=== PATIENT | male | born 1940 | race Caucasian/White ===

== ENCOUNTER 2019-09-28 16:30 | Emergency (ER) | payer MEDICARE, SELFPAY ==
[2019-09-28 16:36] VITALS: BP 135/88; PULSE 106; RESP 16; TEMP 36.7; O2SAT 93; BMI 23.0
--- NOTE | 2019-09-28 16:46 | XRR_ITS ---
PROCEDURE INFORMATION: Exam: XR Chest, 1 View Exam date and time: 09/28/2019 5:27 PM Age: 79 years old Clinical indication: Injury or trauma; Injury history: Pinned under fallen tree; Initial encounter; Crushing TECHNIQUE: Imaging protocol: XR of the chest Views: 1 view. COMPARISON: No relevant prior studies available. FINDINGS: Lungs: Unremarkable. No consolidation. Pleural space: Unremarkable. No pleural effusion. No pneumothorax. Heart/Mediastinum: Unremarkable. No cardiomegaly. Bones/joints: There is widening of the right acromioclavicular joint compared to the left. This may reflect a acromioclavicular joint separation. No definite rib fractures identified on this exam but probable rib fractures were partially imaged on the humerus exam of the same day. XR/XR chest 1V portable [id number] IMPRESSION: The lungs are clear. No definite fracture on this exam but probable new fractures were partially imaged on the humerus exam of the same day. No pneumothorax.
--- NOTE | 2019-09-28 16:46 | XRR_ITS ---
PROCEDURE INFORMATION: Exam: XR Right Humerus Exam date and time: 09/28/2019 5:27 PM Age: 79 years old Clinical indication: Injury or trauma; Injury history: Pinned under fallen tree; Initial encounter; Blunt trauma (contusions or hematomas; Shoulder and arm, upper and elbow and wrist; Right TECHNIQUE: Imaging protocol: XR Right humerus Views: 2 or more views. COMPARISON: No relevant prior studies available. FINDINGS: Bones/joints: No acute humerus fracture. No dislocation. Chronic appearing enthesopathy of the medial epicondyle is noted. Several rib fractures are noted at the edge of the field of view including the lateral aspect of the probable right 9th and 10th ribs. No pneumothorax is identified. Soft tissues: There is abundant soft tissue edema specially surrounding the lower arm. XR/[place] [id number] IMPRESSION: 1. Right lateral rib fractures. 2. No acute fracture of the humerus. There is soft tissue edema.
--- NOTE | 2019-09-28 16:46 | XRR_ITS ---
PROCEDURE INFORMATION: Exam: XR Lumbosacral Spine, 2 or 3 Views Exam date and time: 09/28/2019 5:57 PM Age: 79 years old Clinical indication: Injury or trauma; Injury history: Pinned under fallen tree; Initial encounter; Blunt trauma (contusions or hematomas); Additional info: Low back pain TECHNIQUE: Imaging protocol: XR of the lumbosacral spine, 2 or 3 views. COMPARISON: CR XR hip LT 2-3V wo/w pel* [id number] 09/28/2019 4:59 PM FINDINGS: Vertebrae: The vertebral body heights are maintained. There is disc space narrowing with marked degenerative changes at L5-S1. There is no subluxation. Moderate to severe facet degenerative changes are noted. Soft tissues: Normal. XR/XR lumbar spine 2-3V* [id number] IMPRESSION: Degenerative changes. No acute bony abnormality.
--- NOTE | 2019-09-28 16:46 | XRR_ITS ---
PROCEDURE INFORMATION: Exam: XR Right Elbow Exam date and time: 09/28/2019 5:25 PM Age: 79 years old Clinical indication: Injury or trauma; Injury history: Pinned under fallen tree; Initial encounter; Crushing; Elbow and humerus and shoulder; Right TECHNIQUE: Imaging protocol: XR Right elbow. Views: 3 or more views. COMPARISON: No relevant prior studies available. FINDINGS: Bones/joints: No elbow joint effusion. No acute fracture. Soft tissues: There is soft tissue edema. Probable laceration is present with gas in the soft tissues of the upper arm. No foreign body. Chronic appearing enthesopathy of the medial epicondyle is noted. XR/XR elbow RT min 3V* [id number] IMPRESSION: 1. There is soft tissue edema. 2. Subcutaneous emphysema, soft tissue edema and laceration. No acute bony abnormality.
--- NOTE | 2019-09-28 16:46 | XRR_ITS ---
PROCEDURE INFORMATION: Exam: XR Right Wrist Exam date and time: 09/28/2019 5:25 PM Age: 79 years old Clinical indication: Injury or trauma; Injury history: Pinned under fallen tree; Initial encounter; Crushing; Arm, lower and arm, upper and elbow and humerus and shoulder; Right; Prior surgery TECHNIQUE: Imaging protocol: XR Right wrist. Views: 3 or more views. COMPARISON: No relevant prior studies available. FINDINGS: Bones/joints: Moderate diffuse degenerative changes are noted. No acute fracture or dislocation. Soft tissues: There is either prominent skin fold or laceration just distal to the radial styloid process. There is soft tissue edema. No foreign body. XR/XR wrist RT min 3V* [id number] IMPRESSION: No acute bony abnormality.
--- NOTE | 2019-09-28 16:46 | XRR_ITS ---
PROCEDURE INFORMATION: Exam: XR Cervical Spine, 2 or 3 Views Exam date and time: 09/28/2019 5:57 PM Age: 79 years old Clinical indication: Injury or trauma; Injury history: Pinned under fallen tree; Initial encounter; Blunt trauma TECHNIQUE: Imaging protocol: XR of the cervical spine, 2 or 3 views. COMPARISON: No relevant prior studies available. FINDINGS: Vertebrae: There is severe diffuse degenerative changes. No subluxation. The vertebral body heights are maintained. No acute fracture. The odontoid is intact. There is a fracture of the left mandibular condyle. Other bones/joints: The ribs are intact. No additional fracture of the mandible is identified. Lungs: The lung apices are clear. Soft tissues: Normal. XR/XR cervical spine 3V* [id number] IMPRESSION: 1. There is a fracture of the left mandibular condyle. Additional imaging of the mandible is recommended since no additional mandible fracture is identified but the right mandibular condyle is not well visualized. 2. No acute fracture in the cervical spine.
--- NOTE | 2019-09-28 16:46 | XRR_ITS ---
PROCEDURE INFORMATION: Exam: XR Right Shoulder Exam date and time: 09/28/2019 5:25 PM Age: 79 years old Clinical indication: Injury or trauma; Injury history: Pinned under fallen tree; Initial encounter; Crushing; Arm, lower and elbow and humerus and shoulder; Right TECHNIQUE: Imaging protocol: XR Right shoulder. Views: 2 or more views. COMPARISON: No relevant prior studies available. FINDINGS: Bones/joints: There is no acute glenohumeral joint fracture or dislocation. The right acromioclavicular joint appears widened. This may reflect a age indeterminate separation or prior Eleno procedure. The subacromial joint space is well-preserved. The glenohumeral joint is unremarkable. The visualized ribs are intact. There is some sclerosis and subtle irregularity of the anterior aspect of the right 3rd and 4th ribs that may reflect old remote fractures. Lungs: The visualized lung apex is clear. Soft tissues: No calcific tendinopathy. XR/XR shoulder RT min 2V* [id number] IMPRESSION: 1. No acute glenohumeral joint abnormality. 2. There is widening of the right acromioclavicular joint that may reflect age indeterminate separation or prior Eleno procedure.
--- NOTE | 2019-09-28 16:49 | XRR_ITS ---
PROCEDURE INFORMATION: Exam: XR Left Hip with Pelvis when Performed Exam date and time: 09/28/2019 5:25 PM Age: 79 years old Clinical indication: Injury or trauma; Injury history: Pinned under fallen tree; Initial encounter; Crushing; Bilateral; Hip TECHNIQUE: Imaging protocol: XR Left hip with pelvis when performed. Views: 2 or 3 views. COMPARISON: No relevant prior studies available. FINDINGS: Bones/joints: There is a fracture of the lateral aspect of the left superior pubic ramus with probable nondisplaced fracture line extending in the left acetabulum. There is a nondisplaced fracture left inferior pubic ramus. The proximal left femur is intact. No fracture of the sacrum or remainder of the pelvis is identified. Soft tissues: Scattered radiopaque foci are noted in the soft tissues of the groin and medial thigh that may reflect foreign bodies or debris on the patient's clothing or skin surface. XR/XR hip LT 2-3V wo/w pel* [id number] IMPRESSION: Left pubic rami fractures. Probable nondisplaced fracture left acetabulum. Scattered radiodense foreign bodies or debris are noted as above.
[2019-09-28 17:04] VITALS: RESP 16
[2019-09-28] MEDS: ondansetron 2 mg/ML SDV 2 mL 4 MG IVP ×2 (17:04→19:41)
[2019-09-28] MEDS: morphine 4 mg/mL SDV 1 mL 2 MG IVP (17:04)
--- NOTE | 2019-09-28 17:06 | PC.NURSE ---
X-ray at bedside
--- NOTE | 2019-09-28 17:10 | W.ED.EXTPRO ---
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 of gas/vacuum phenomenon in the left sacroiliac joint. Vasculature: Moderate atherosclerotic changes in the aorta. No aneurysm. Soft tissues: Edema specially adjacent to the sacroiliac joint diastasis bilaterally right greater than left. CT/CT lumbar spine wo con* [id number] IMPRESSION: 1. Comminuted fracture of the right iliac wing extending into the right sacroiliac joint. Diastasis of both sacroiliac joints. Nondisplaced fracture of the left sacral ala . Fractures of all left transverse processes of the lumbar vertebra and nondisplaced fracture of the right transverse process of L4. 2. Lumbar vertebral body heights are maintained. No subluxation. Radiation Dose CTDIVOL = (mGy): DLP = 2096.03 (mGy-cm) Dictated By: Latanya García Signed By: Latanya García Signed Date/Time: 09/28/192052 DD/ 51 CT Chest/ABD/Pelvis : Radiologist's impression: [address] [address] [address] Scan Report Signed Patient: Kate Brown Unit #: [id number] : [id number] Age/Sex: 79 / M ADM Date: 09/28/19 Loc: ER Room/Bed: Attending Dr: Ordering Provider/Ordering MD: Caroline Duffy DO Date of Service: 09/28/19 Procedure(s): CT chest abd pel w con* Accession Number(s): [id number] Report Number: [id number] PROCEDURE INFORMATION: Exam: CT Chest With Contrast Exam date and time: 09/28/2019 7:59 PM Age: 79 years old Clinical indication: Injury or trauma; Injury history: Pinned under fallen tree; Initial encounter; Crushing; Additional info: Abdominal pain TECHNIQUE: Imaging protocol: Computed tomography of the chest with intravenous contrast. Radiation optimization: All CT scans at this facility use at least one of these dose optimization techniques: automated exposure control; mA and/or kV adjustment per patient size (includes targeted exams where dose is matched to clinical indication); or iterative reconstruction. Contrast material: VISI; Contrast volume: 95 ml; Contrast route: IV; COMPARISON: CR XR hip LT 2-3V wo/w pel* [id number] 09/28/2019 4:59 PM RADIATION DOSE METRICS: Total DLP: 1083.99 mGy-cm FINDINGS: Lungs: There is apical scarring. There are moderate to severe emphysematous changes. There is a 1.2 by 1.1 cm ground-glass nodular density right lung image 35. There is some mild dependent atelectasis. Pleural space: Unremarkable. No pneumothorax. No pleural effusion. Heart: Unremarkable. No cardiomegaly. No pericardial effusion. Aorta: Moderate atherosclerotic changes are noted in the thoracic aorta. Ascending thoracic aorta measures 4.1 by 4.0 cm. The mid descending thoracic aorta is 2.7 by 2.9 cm. The transverse aortic arch is 2.8 cm. There is no dissection or traumatic injury of the thoracic aorta. Lymph nodes: Unremarkable. No enlarged lymph nodes. Bones/joints: There is a fracture of the left transverse process of L1. No acute fracture of either scapula. No acute fracture of the visualized clavicles. There is deformity and sclerosis of the left 1st rib compatible with probable old fracture. Old fractures of the right anterior lateral 1st , 2nd and 3rd ribs are noted. There is subtle buckle deformity of the anterior lateral aspect of the right 5th through 8th ribs concerning for subtle new fractures. There is some edema along the lateral aspect of these ribs concerning for new fractures. The sternum is intact. There are thoracic vertebra are intact. Soft tissues: There is incidental subcutaneous emphysema in the right arm at the edge of the field of view. Other findings: There are multiple calcified granulomas. IMPRESSION: 1. Bilateral old rib fracture deformities. There are subtle buckle deformities of multiple anterior lateral right ribs with some edema of the overlying subcutaneous fat concerning for nondisplaced fractures. No pneumothorax. 2. Incidental ground-glass density nodule right lung measuring 1.2 cm in greatest dimension.Recommend CT at 6-12 months to confirm persistence of the nodule, then CT at 3 and at 5 years. (Brielle et al., Fleischner Society, 2017) PROCEDURE INFORMATION: Exam: CT Abdomen And Pelvis With Contrast Exam date and time: 09/28/2019 7:59 PM Age: 79 years old Clinical indication: Injury or trauma; Injury history: Pinned under fallen tree; Initial encounter; Crushing; Additional info: Abdominal pain TECHNIQUE: Imaging protocol: Computed tomography of the abdomen and pelvis with intravenous contrast. Radiation optimization: All CT scans at this facility use at least one of these dose optimization techniques: automated exposure control; mA and/or kV adjustment per patient size (includes targeted exams where dose is matched to clinical indication); or iterative reconstruction. Contrast material: VISI; Contrast volume: 95 ml; Contrast route: IV; COMPARISON: CR XR hip LT 2-3V wo/w pel* [id number] 09/28/2019 4:59 PM RADIATION DOSE METRICS: Total DLP: 1083.99 mGy-cm FINDINGS: Liver: The liver is intact. Gallbladder and bile ducts: There is cholelithiasis. No evidence of cholecystitis. Pancreas: The pancreas is intact. Spleen: The spleen is intact. Adrenals: Normal. No mass. Kidneys and ureters: There are multiple right renal hypodensities that cannot be further characterized on the current examination. The kidneys are otherwise intact. No hydronephrosis. Stomach and bowel: The stomach is extremely distended with fluid, air secretions and a few pill fragments. There is moderate to severe diverticulosis. No diverticulitis. There is edema of the right iliopsoas muscle scanned patchy below with reactive edema without a well-defined hematoma. The loops of bowel otherwise have an appropriate appearance. Appendix: The appendix is unremarkable. Intraperitoneal space: Unremarkable. No free air. No significant fluid collection. Vasculature: Unremarkable.No abdominal aortic aneurysm. Lymph nodes: Unremarkable.No enlarged lymph nodes. Bladder: There is nonspecific bladder wall thickening. This may be related to incomplete distention. Reproductive: The prostate demonstrates moderate nonspecific enlargement. The seminal vesicles are normal. Bones/joints: This is immediately superior to a comminuted fracture of the right iliac wing. The comminuted right iliac wing fracture extends into the right sacroiliac joint. There is diastasis of the right sacroiliac joint measuring 1 cm. There is a nondisplaced fracture of the left sacral ala. There is diastasis of the left sacroiliac joint measuring 6 mm. There is some mild asymmetric enlargement/edema of the right superior gluteal muscles compatible with probable reactive edema to the adjacent fractures. There is severe degenerative changes in the spine. There is a fracture of the left lateral superior pubic ramus. Nondisplaced comminuted fracture of the anterior medial left acetabulum and adjacent medial wall left acetabulum are noted. Posterior column of the left acetabulum is intact. There is a mildly angulated fracture left inferior pubic ramus. There is mild diastasis of the pubic symphysis measuring 7 mm. No acute fracture of either visualized femur. There are fractures of all left transverse processes of the lumbar spine and a fracture of the right transverse process of L4. Soft tissues: There is edema/hematoma of the muscles of the right lateral abdominal wall. There is subtle deformity concerning for a traumatic hernia of the muscles of the right posterior lateral abdominal wall image 44. Other findings: No duct dilatation. No ileus or obstruction. There is mild nonspecific presacral edema. No ileus or obstruction. CT/CT chest abd pel w con* IMPRESSION: 1. Marked hematoma and irregularity/the deformity muscles of the right abdominal wall just superior to the right iliac wing fracture concerning for traumatic lumbar hernia. 2. Comminuted fracture right iliac wing, diastasis of the pubic symphysis, left sacral fracture, pubic rami fractures, left acetabular fracture, mild diastasis of the pubic symphysis, lumbar transverse process fractures as above. Radiation Dose CTDIVOL = (mGy): DLP = 1083.99 1083.99 (mGy-cm) Dictated By: Latanya García Signed By: Latanya García Signed Date/Time: 09/28/192122 DD/ 20 Pelvis: My impression: Left inferior pubis ramus fracture. Probable right sacral iliac wing fracture. Discharge Plan Discharge Patient Disposition: Xfer Short-Term Hosp Clinical Impression: Closed pelvic fracture Qualifiers: Encounter type: initial encounter Pelvic bone location: other part of pelvis Qualified Code(s): S32.89XA - Fracture of other parts of pelvis, initial encounter for closed fracture Acetabular fracture Qualifiers: Encounter type: initial encounter Sublocation of acetabulum: unspecified portion of acetabulum Fracture type: closed Fracture alignment: nondisplaced Laterality: left Qualified Code(s): S32.402A - Unspecified fracture of left acetabulum, initial encounter for closed fracture Lumbar transverse process fracture Qualifiers: Encounter type: initial encounter Fracture type: closed Qualified Code(s): S32.009A - Unspecified fracture of unspecified lumbar vertebra, initial encounter for closed fracture Fracture, ribs Qualifiers: Encounter type: initial encounter Rib fracture type: multiple ribs Fracture type: closed Laterality: right Qualified Code(s): S22.41XA - Multiple fractures of ribs, right side, initial encounter for closed fracture Condition: Stable Discharge Date/Time: 09/28/19 22:25 Coding Level of Care Code ED [employer]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
[2019-09-28 18:02] LABS: Basophils # 0.1 10^3/uL (0.0-0.1); Basophils % 0.3 %; Eosinophils % 0.1 %; Hemoglobin 14.1 g/dL (11.7-16.6); Lymphocytes # 1.3 10^3/uL (0.8-4.8); Lymphocytes % 5.7 %; Mean Corpuscular HGB Conc 32.8 g/dL (30.0-36.0); Mean Corpuscular Hemoglobin 31.2 pg (28.0-34.0); Mean Corpuscular Volume 95.1 fL (80-94); Mean Platelet Volume 9.6 fL (7.4-10.4); Monocytes # 1.3 10^3/uL (0.2-0.9); Monocytes % 5.3 %; Neutrophils # 20.6 10^3/uL (1.8-7.7); Neutrophils % 87.8 %; Nucleated Red Blood Cells % 0 %; Platelet Count 276 10^3/cmm (130-400); Red Blood Count 4.52 10^6/uL (4.1-5.3); Red Cell Distribution Width 12.8 % (12.1-15.1); White Blood Count 23.5 10^3/uL (4.0-10.0)
--- NOTE | 2019-09-28 18:02 | XRR_ITS ---
PROCEDURE INFORMATION: Exam: XR Acromioclavicular Joints Exam date and time: 09/28/2019 6:28 PM Age: 79 years old Clinical indication: Injury or trauma; Injury history: Pinned under fallen tree; Initial encounter; Blunt trauma (contusions or hematomas; Shoulder and arm, upper and elbow and arm, lower and wrist; Right; Additional info: Weighted and unweighted views TECHNIQUE: Imaging protocol: XR acromioclavicular joints. Bilateral exam. COMPARISON: CR XR elbow RT min 3V* [id number] 09/28/2019 4:59 PM FINDINGS: Bones/joints: There is widening of the right acromioclavicular joint with a gap measuring 1.6 cm. The clavicle is high riding with respect to the acromion by 0.6 cm. Note is made however that the right clavicle appears shorter than the left and this simply could reflect postoperative changes of a prior Eleno procedure. Please correlate clinically. A acromioclavicular joint separation cannot be excluded. The left acromioclavicular joint alignment is appropriate. There is no change in alignment of the acromioclavicular joints between the weight-bearing and nonweightbearing views. The visualized ribs are intact. Lungs: The lung apices are clear. Soft tissues: Normal. XR/[place] [id number] IMPRESSION: There is widening and mild offset of the right acromioclavicular joint compared to the left but the right clavicle also appears shorter in this may reflect a postoperative Eleno procedure. And acromioclavicular joint separation cannot be excluded. The left acromioclavicular joint has an appropriate appearance.
[2019-09-28] MEDS: tetanus-dipt-pertussis 0.5 mL SDV IM (18:38)
[2019-09-28 18:51] LABS: Alanine Aminotransferase 18 U/L (0-41); Albumin Level 4.2 g/dL (3.5-5.2); Alkaline Phosphatase 54 IU/L (40-130); Anion Gap 17.2 (5-19); Aspartate Amino Transferase 22 U/L (0-40); Blood Urea Nitrogen 19 mg/dL (8-23); Calcium 8.9 mg/dL (8.5-10.5); Carbon Dioxide 26 mmol/L (22-29); Chloride 98 mmol/L (98-107); Globulin 2.4 g/dL (1.3-4.6); Glucose 176 mg/dL (65-115); Osmolality Calculated 287 mOsm/kg (285-295); Potassium 3.2 mmol/L (3.5-5.1); Sodium 138 mmol/L (136-145); Total Bilirubin 0.6 mg/dL (0.15-1.2); Total Protein 6.6 g/dL (6.6-8.7)
[2019-09-28 19:26] VITALS: BP 120/72; PULSE 102; RESP 18; O2SAT 93
[2019-09-28] MEDS: HYDROcodone-acetaminophen 5-325 mg Tablet 1 TAB PO (19:42)
--- NOTE | 2019-09-28 19:42 | CTR_ITS ---
PROCEDURE INFORMATION: Exam: CT Head Without Contrast Exam date and time: 09/28/2019 7:59 PM Age: 79 years old Clinical indication: Injury or trauma; Injury history: Tree fell on trailer pinning patient; Initial encounter; Blunt trauma (contusions or hematomas) and crushing injury; Additional info: Fontenot/ams TECHNIQUE: Imaging protocol: Computed tomography of the head without contrast. Radiation optimization: All CT scans at this facility use at least one of these dose optimization techniques: automated exposure control; mA and/or kV adjustment per patient size (includes targeted exams where dose is matched to clinical indication); or iterative reconstruction. COMPARISON: No relevant prior studies available. RADIATION DOSE METRICS: Total DLP: 888.43 mGy-cm FINDINGS: Brain: There is extensive volume loss and periventricular low density compatible with small vessel disease changes. There is no acute hemorrhage, edema or mass effect. No midline shift. Ventricles: The ventricle size is prominent but compatible with ex vacuo effect due to the volume loss. Bones/joints: Unremarkable. No acute fracture. Sinuses: There is mild mucosal thickening in the frontal sinuses. No air-fluid levels. Mastoid air cells: Visualized mastoid air cells are well aerated. Soft tissues: Unremarkable. CT/CT head wo con* [id number] IMPRESSION: No acute intracranial abnormality. Radiation Dose CTDIVOL = (mGy): DLP = 888.43 (mGy-cm)
--- NOTE | 2019-09-28 19:42 | CTR_ITS ---
PROCEDURE INFORMATION: Exam: CT Maxillofacial Without Contrast Exam date and time: 09/28/2019 7:59 PM Age: 79 years old Clinical indication: Injury or trauma; Injury history: Tree fell on trailer pinning patient; Initial encounter; Blunt trauma (contusions or hematomas) and crushing; Head/scalp and jaw; Loss of consciousness not known; Not specified TECHNIQUE: Imaging protocol: Computed tomography images of the face without contrast. Radiation optimization: All CT scans at this facility use at least one of these dose optimization techniques: automated exposure control; mA and/or kV adjustment per patient size (includes targeted exams where dose is matched to clinical indication); or iterative reconstruction. COMPARISON: No relevant prior studies available. RADIATION DOSE METRICS: Total DLP: 887.87 mGy-cm FINDINGS: Orbits: Orbits are normal. Globes are unremarkable. Bones/joints: Cervical spine plain films demonstrated a prominent area of irregularity of the angle of the left mandible on the AP view concerning for fracture. No fracture of the mandible is identified. The patient does have severe degenerative changes of the temporomandibular joints with exuberant bony proliferative changes. Probable rotation of the patient and the marked bony proliferative changes simulated a fracture on this view. There is a age indeterminate fracture of the tip of the right nasal bone. There is some deformity of the overlying skin surface in this may be a new injury with a laceration. There is sclerosis of the left nasal bone with subtle cortical deformity compatible with age indeterminate fracture image 57. Prominent bilateral nasal bone synchondrosis ease are noted. The orbital freeman are intact. The zygoma and pterygoids are intact. The patient maxilla is edentulous. This is best seen on image 35. No additional acute fracture. Some deformity and sclerosis of the nasal septum that is suspected to be old fracture deformity. Sinuses: There is some mild mucosal thickening in the frontal air cells. No air-fluid levels in the sinuses. Dental: Periapical lucency in thinning of the cortex of the right maxilla is noted concerning for chronic osteomyelitis. There are only a few teeth remaining in the mandible. There is some periapical lucency surrounding the 2 most medial teeth in the mandible concerning for bony reabsorption without definite cortical destruction or osteomyelitis in the mandible. Soft tissues: See Bones/joints finding. CT/CT facial bones wo con* [id number] IMPRESSION: 1. Nasal bone fracture deformities. Probable old fracture of the nasal septum. 2. Suspected fracture of the mandible on earlier plain film today is not of fracture as described above. No acute fracture of the mandible or remaining facial bones. 3. There is extensive periapical lucency and bony destruction of the right maxilla concerning for chronic osteomyelitis. Radiation Dose CTDIVOL = (mGy): DLP = 887.87 (mGy-cm)
--- NOTE | 2019-09-28 19:43 | CTR_ITS ---
PROCEDURE INFORMATION: Exam: CT Chest With Contrast Exam date and time: 09/28/2019 7:59 PM Age: 79 years old Clinical indication: Injury or trauma; Injury history: Pinned under fallen tree; Initial encounter; Crushing; Additional info: Abdominal pain TECHNIQUE: Imaging protocol: Computed tomography of the chest with intravenous contrast. Radiation optimization: All CT scans at this facility use at least one of these dose optimization techniques: automated exposure control; mA and/or kV adjustment per patient size (includes targeted exams where dose is matched to clinical indication); or iterative reconstruction. Contrast material: VISI; Contrast volume: 95 ml; Contrast route: IV; COMPARISON: CR XR hip LT 2-3V wo/w pel* [id number] 09/28/2019 4:59 PM RADIATION DOSE METRICS: Total DLP: 1083.99 mGy-cm FINDINGS: Lungs: There is apical scarring. There are moderate to severe emphysematous changes. There is a 1.2 by 1.1 cm ground-glass nodular density right lung image 35. There is some mild dependent atelectasis. Pleural space: Unremarkable. No pneumothorax. No pleural effusion. Heart: Unremarkable. No cardiomegaly. No pericardial effusion. Aorta: Moderate atherosclerotic changes are noted in the thoracic aorta. Ascending thoracic aorta measures 4.1 by 4.0 cm. The mid descending thoracic aorta is 2.7 by 2.9 cm. The transverse aortic arch is 2.8 cm. There is no dissection or traumatic injury of the thoracic aorta. Lymph nodes: Unremarkable. No enlarged lymph nodes. Bones/joints: There is a fracture of the left transverse process of L1. No acute fracture of either scapula. No acute fracture of the visualized clavicles. There is deformity and sclerosis of the left 1st rib compatible with probable old fracture. Old fractures of the right anterior lateral 1st , 2nd and 3rd ribs are noted. There is subtle buckle deformity of the anterior lateral aspect of the right 5th through 8th ribs concerning for subtle new fractures. There is some edema along the lateral aspect of these ribs concerning for new fractures. The sternum is intact. There are thoracic vertebra are intact. Soft tissues: There is incidental subcutaneous emphysema in the right arm at the edge of the field of view. Other findings: There are multiple calcified granulomas. IMPRESSION: 1. Bilateral old rib fracture deformities. There are subtle buckle deformities of multiple anterior lateral right ribs with some edema of the overlying subcutaneous fat concerning for nondisplaced fractures. No pneumothorax. 2. Incidental ground-glass density nodule right lung measuring 1.2 cm in greatest dimension.Recommend CT at 6-12 months to confirm persistence of the nodule, then CT at 3 and at 5 years. (anabel Hannah al., Fleischner Society, 2017) PROCEDURE INFORMATION: Exam: CT Abdomen And Pelvis With Contrast Exam date and time: 09/28/2019 7:59 PM Age: 79 years old Clinical indication: Injury or trauma; Injury history: Pinned under fallen tree; Initial encounter; Crushing; Additional info: Abdominal pain TECHNIQUE: Imaging protocol: Computed tomography of the abdomen and pelvis with intravenous contrast. Radiation optimization: All CT scans at this facility use at least one of these dose optimization techniques: automated exposure control; mA and/or kV adjustment per patient size (includes targeted exams where dose is matched to clinical indication); or iterative reconstruction. Contrast material: VISI; Contrast volume: 95 ml; Contrast route: IV; COMPARISON: CR XR hip LT 2-3V wo/w pel* [id number] 09/28/2019 4:59 PM RADIATION DOSE METRICS: Total DLP: 1083.99 mGy-cm FINDINGS: Liver: The liver is intact. Gallbladder and bile ducts: There is cholelithiasis. No evidence of cholecystitis. Pancreas: The pancreas is intact. Spleen: The spleen is intact. Adrenals: Normal. No mass. Kidneys and ureters: There are multiple right renal hypodensities that cannot be further characterized on the current examination. The kidneys are otherwise intact. No hydronephrosis. Stomach and bowel: The stomach is extremely distended with fluid, air secretions and a few pill fragments. There is moderate to severe diverticulosis. No diverticulitis. There is edema of the right iliopsoas muscle scanned patchy below with reactive edema without a well-defined hematoma. The loops of bowel otherwise have an appropriate appearance. Appendix: The appendix is unremarkable. Intraperitoneal space: Unremarkable. No free air. No significant fluid collection. Vasculature: Unremarkable.No abdominal aortic aneurysm. Lymph nodes: Unremarkable.No enlarged lymph nodes. Bladder: There is nonspecific bladder wall thickening. This may be related to incomplete distention. Reproductive: The prostate demonstrates moderate nonspecific enlargement. The seminal vesicles are normal. Bones/joints: This is immediately superior to a comminuted fracture of the right iliac wing. The comminuted right iliac wing fracture extends into the right sacroiliac joint. There is diastasis of the right sacroiliac joint measuring 1 cm. There is a nondisplaced fracture of the left sacral ala. There is diastasis of the left sacroiliac joint measuring 6 mm. There is some mild asymmetric enlargement/edema of the right superior gluteal muscles compatible with probable reactive edema to the adjacent fractures. There is severe degenerative changes in the spine. There is a fracture of the left lateral superior pubic ramus. Nondisplaced comminuted fracture of the anterior medial left acetabulum and adjacent medial wall left acetabulum are noted. Posterior column of the left acetabulum is intact. There is a mildly angulated fracture left inferior pubic ramus. There is mild diastasis of the pubic symphysis measuring 7 mm. No acute fracture of either visualized femur. There are fractures of all left transverse processes of the lumbar spine and a fracture of the right transverse process of L4. Soft tissues: There is edema/hematoma of the muscles of the right lateral abdominal wall. There is subtle deformity concerning for a traumatic hernia of the muscles of the right posterior lateral abdominal wall image 44. Other findings: No duct dilatation. No ileus or obstruction. There is mild nonspecific presacral edema. No ileus or obstruction. CT/CT chest abd pel w con* IMPRESSION: 1. Marked hematoma and irregularity/the deformity muscles of the right abdominal wall just superior to the right iliac wing fracture concerning for traumatic lumbar hernia. 2. Comminuted fracture right iliac wing, diastasis of the pubic symphysis, left sacral fracture, pubic rami fractures, left acetabular fracture, mild diastasis of the pubic symphysis, lumbar transverse process fractures as above. Radiation Dose CTDIVOL = (mGy): DLP = 1083.99~1083.99 (mGy-cm)
--- NOTE | 2019-09-28 19:43 | CTR_ITS ---
PROCEDURE INFORMATION: Exam: CT Cervical Spine Without Contrast Exam date and time: 09/28/2019 7:59 PM Age: 79 years old Clinical indication: Injury or trauma; Injury history: Pinned under fallen tree; Initial encounter; Crushing; Additional info: Pain TECHNIQUE: Imaging protocol: Computed tomography images of the cervical spine without contrast. Radiation optimization: All CT scans at this facility use at least one of these dose optimization techniques: automated exposure control; mA and/or kV adjustment per patient size (includes targeted exams where dose is matched to clinical indication); or iterative reconstruction. COMPARISON: CR XR cervical spine 3V* [id number] 09/28/2019 5:17 PM RADIATION DOSE METRICS: Total DLP: 609.49 mGy-cm FINDINGS: Vertebrae: No acute fracture. Normal alignment. Diffuse moderate to severe degenerative changes are noted. There is disc space narrowing with endplate osteophytes and sclerosis especially at C3-C4. Discs/Spinal canal/Neural foramina: No focal disc protrusion. No spinal critical canal stenosis. Multiple small disc bulges are noted. There are multiple levels bilateral foraminal narrowing due to facet and uncovertebral joint bony proliferative/degenerative changes especially at C3-C4, C5-C6 and C6-C7 right greater than left. Soft tissues: Unremarkable. Lungs: Lung apices are normal. No pneumothorax. There are [id number] emphysematous changes with mild apical scarring. There is an old fracture of the anterior aspect of the left 1st rib with bony sclerosis and remodeling. The remaining visualized ribs are intact. CT/CT cervical spin wo con* [id number] IMPRESSION: No acute findings. Multiple chronic findings are noted including degenerative changes and old left 1st rib fracture. Radiation Dose CTDIVOL = (mGy): DLP = 609.49 (mGy-cm)
[2019-09-28 19:46] LABS: Magnesium 2.2 mg/dL (1.7-2.3)
--- NOTE | 2019-09-28 19:52 | CTR_ITS ---
PROCEDURE INFORMATION: Exam: CT Thoracic Spine Without Contrast Exam date and time: 09/28/2019 7:59 PM Age: 79 years old Clinical indication: Injury or trauma; Injury history: Tree fell on trailer pinning patient; Initial encounter; Blunt trauma (contusions or hematomas) and crushing; Additional info: Pain/injury TECHNIQUE: Imaging protocol: Computed tomography images of the thoracic spine without contrast. Radiation optimization: All CT scans at this facility use at least one of these dose optimization techniques: automated exposure control; mA and/or kV adjustment per patient size (includes targeted exams where dose is matched to clinical indication); or iterative reconstruction. COMPARISON: No relevant prior studies available. RADIATION DOSE METRICS: Total DLP: 1085.02 mGy-cm FINDINGS: Vertebrae: There is a fracture of the left transverse process of L1. No acute fracture of the thoracic vertebra. The thoracic vertebral body heights are maintained. There are multiple Schmorl's nodes and moderate degenerative changes. A few scattered thoracic disc calcifications are noted. There is osteopenia. The spinous processes are intact. Discs/Spinal canal/Neural foramina: No spinal canal stenosis. Soft tissues: There is a probable sebaceous cyst in the subcutaneous fat of the midline upper back that measures 3.1 x 2.4 cm in size. Lungs: There are emphysematous changes with mild dependent atelectasis. CT/CT thoracic spin wo con* [id number] IMPRESSION: 1. There is a nondisplaced fracture of the left transverse process of L1. 2. No additional acute fracture. No subluxation. Radiation Dose CTDIVOL = (mGy): DLP = 1085.02 (mGy-cm)
--- NOTE | 2019-09-28 19:52 | CTR_ITS ---
PROCEDURE INFORMATION: Exam: CT Lumbar Spine Without Contrast Exam date and time: 09/28/2019 7:59 PM Age: 79 years old Clinical indication: Injury or trauma; Injury history: Pinned under fallen tree; Initial encounter; Crushing; Injury details: Tree fell on trailer pinning patient TECHNIQUE: Imaging protocol: Computed tomography images of the lumbar spine without contrast. Radiation optimization: All CT scans at this facility use at least one of these dose optimization techniques: automated exposure control; mA and/or kV adjustment per patient size (includes targeted exams where dose is matched to clinical indication); or iterative reconstruction. COMPARISON: CR XR lumbar spine 2-3V* [id number] 09/28/2019 5:41 PM RADIATION DOSE METRICS: Total DLP: 2096.03 mGy-cm FINDINGS: Vertebrae: There is a nondisplaced fracture of the left transverse process of L1. There is a mildly angulated fracture of the left transverse process of L2, L3 L4 and L5. There is a fracture of the right transverse process of L4. There are moderate facet degenerative changes in the spine. The vertebral body heights are maintained. Spinous processes are intact. Discs/Spinal canal/Neural foramina: There is marked disc space narrowing at L5-S1. Sacrum/coccyx: There is diastasis of the sacroiliac joints with the right measuring 1 cm in the left measuring 0.7 cm. There is a comminuted fracture of the right iliac bone lateral to the right sacroiliac joint with comminuted fracture line extending into the superior aspect of the right sacroiliac joint best seen for example on image 80. There is a linear fracture of the left sacral ala image 87. No definite fracture of the right sacral ala There is abundant edema in the right iliopsoas muscle adjacent to the right iliac fracture and diastasis of the right sacroiliac joint. There is mild edema adjacent to the left sacral fracture in diastasis of the left sacroiliac joint. There is a small amount of gas/vacuum phenomenon in the left sacroiliac joint. Vasculature: Moderate atherosclerotic changes in the aorta. No aneurysm. Soft tissues: Edema specially adjacent to the sacroiliac joint diastasis bilaterally right greater than left. CT/CT lumbar spine wo con* [id number] IMPRESSION: 1. Comminuted fracture of the right iliac wing extending into the right sacroiliac joint. Diastasis of both sacroiliac joints. Nondisplaced fracture of the left sacral ala . Fractures of all left transverse processes of the lumbar vertebra and nondisplaced fracture of the right transverse process of L4. 2. Lumbar vertebral body heights are maintained. No subluxation. Radiation Dose CTDIVOL = (mGy): DLP = 2096.03 (mGy-cm)
[2019-09-28] MEDS: iodixanol 320 mg/mL 100mL Btl IV (20:24)
--- NOTE | 2019-09-28 20:59 | XR_ITS ---
WS: [id number] XR pelvis 1-2V* [id number] REASON FOR EXAM: TRAUMA/PAIN FINDINGS: A fractures seen through the inferior ramus of pubic on the left side. The left hip and right hip joints were normal. There is prominent calcified density seen in the region of the bladder suggesting large stones. The left ischium shows a fracture also. IMPRESSION: Fracture the inferior ramus the diffuse Fracture of the ischium on the left. Densities seen in the bladder suggesting large stones.
[2019-09-28 21:02] LABS: Creatine Phosphokinase 450 U/L (39-308)
[2019-09-28] MEDS: sodium chloride 0.9% 1,000 ML 999 ML IV (21:24)
[2019-09-28 21:48] VITALS: BP 192/95; PULSE 102; RESP 22; O2SAT 94
[2019-09-28] MEDS: metoclopramide 5 mg/mL SDV 2 mL 10 MG IV (22:07)
[2019-09-28 22:20] VITALS: BP 195/95; PULSE 102; RESP 22; O2SAT 94
== END 2019-09-28 22:25 | disposition short-term general hospital (02) ==
PROVIDERS: Family Medicine; Emergency Provider Emergency Medicine
DX: S32.89XA Fracture of other parts of pelvis, initial encounter for closed fracture (principal); S32.402A Unspecified fracture of left acetabulum, initial encounter for closed fracture; S32.018A Other fracture of first lumbar vertebra, initial encounter for closed fracture; S22.41XA Multiple fractures of ribs, right side, initial encounter for closed fracture; X37 Cataclysmic storm; F17.210 Nicotine dependence, cigarettes, uncomplicated; Z23 Encounter for immunization; S50.812A Abrasion of left forearm, initial encounter; S50.811A Abrasion of right forearm, initial encounter
CPT/HCPCS: 12345; 70450; 70486; 71045; 71260; 72040; 72100; 72125; 72128; 72131; 72170; 73030; 73050; 73060; 73080; 73110; 73502; 74177; 80053; 82550; 83735; 85025; 90471; 90715; 96360; 96361; 96365; 96374; 96375; 96376; 99283; 99285; J2001; J2270; J2405; J2765; J7030; Q9967

== ENCOUNTER 2019-12-10 00:35 | Inpatient (IN) | payer MEDICARE, SELFPAY ==
[2019-12-10] VITALS (13 sets, daily range): BP systolic 100–157; BP diastolic 56–86; PULSE 62–95; RESP 14–18; TEMP 36.4–36.8; O2SAT 93–99; BMI 23.7
--- NOTE | 2019-12-10 00:48 | XR_ITS ---
WS: [id number] CHEST XRAY TECHNIQUE: Portable chest. CLINICAL INFORMATION: AMS COMPARISON: September 28, 2019 FINDINGS: Heart: Normal cardiac silhouette. Lungs: Moderate chronic emphysematous changes. No acute pulmonary infiltrates. Bones: Normal visualized bony structures. XR/XR chest 1V portable [id number] IMPRESSION: No acute chest findings
--- NOTE | 2019-12-10 00:50 | ECG_ITS ---
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 Measurements Intervals [place] Rate: 74 P: 76 TX: 196 QRS: -16 QRSD: 135 T: 268 QT: 473 QTc: 526 Interpretive Statements SINUS RHYTHM INTRAVENTRICULAR CONDUCTION DELAY [130+ ms QRS DURATION] SEPTAL MYOCARDIAL INFARCTION , OF INDETERMINATE AGE [40+ ms Q WAVE IN V1/V2] Diffuse T wave changes Prolonged QTC Consider ischemia no previous ECG available for comparison Electronically Signed On 12-11-2019 0:07:29 CDT by Dedrick Mcgarry M.D. [email or web address]
--- NOTE | 2019-12-10 00:50 | CTR_ITS ---
PROCEDURE INFORMATION: Exam: CT Head Without Contrast Exam date and time: 12/10/2019 1:55 AM Age: 79 years old Clinical indication: Altered mental status/memory loss; Confusion or disorientation TECHNIQUE: Imaging protocol: Computed tomography of the head without contrast. Radiation optimization: All CT scans at this facility use at least one of these dose optimization techniques: automated exposure control; mA and/or kV adjustment per patient size (includes targeted exams where dose is matched to clinical indication); or iterative reconstruction. COMPARISON: CT head wo con* [id number] 09/28/2019 7:55 PM RADIATION DOSE METRICS: Total DLP (mGy-cm): 1746.6 FINDINGS: Brain: Mild atrophy and mild white matter chronic microvascular changes are noted. No hemorrhage or CT evidence of acute infarction is seen. Ventricles: Normal. No ventriculomegaly. Bones/joints: Unremarkable. No acute fracture. Sinuses: Visualized sinuses are unremarkable. No fluid levels. Mastoid air cells: Visualized mastoid air cells are well aerated. Soft tissues: Unremarkable. CT/CT head wo con* [id number] IMPRESSION: No acute intracranial abnormality. Radiation Dose CTDIVOL = (mGy): DLP = 1746.6 (mGy-cm)
[2019-12-10] MEDS: sodium chloride 0.9% 1,000 ML 100 ML IV (01:15)
[2019-12-10 01:28] LABS: Basophils # 0.1 10^3/uL (0.0-0.1); Basophils % 0.6 %; Eosinophils # 0.1 10^3/uL (0.0-0.8); Eosinophils % 0.9 %; Hematocrit 40.6 % (42.0-52.0); Hemoglobin 13.6 g/dL (11.7-16.6); Lymphocytes # 1.2 10^3/uL (0.8-4.8); Lymphocytes % 12.5 %; Mean Corpuscular HGB Conc 33.5 g/dL (30.0-36.0); Mean Corpuscular Hemoglobin 30.3 pg (28.0-34.0); Mean Corpuscular Volume 90.4 fL (80-94); Mean Platelet Volume 10.9 fL (7.4-10.4); Monocytes # 0.9 10^3/uL (0.2-0.9); Monocytes % 9.1 %; Neutrophils # 7.15 10^3/uL (1.8-7.7); Neutrophils % 76.5 %; Nucleated Red Blood Cells % 0 %; Platelet Count 228 10^3/cmm (130-400); Red Blood Count 4.49 10^6/uL (4.1-5.3); Red Cell Distribution Width 12.6 % (12.1-15.1); White Blood Count 9.4 10^3/uL (4.0-10.0)
[2019-12-10 01:32] LABS: Lactic Sepsis W/Reflex 1.4 mmol/L (0.5-2.2)
[2019-12-10 01:35] LABS: Troponin(5th) Baseline 53 ng/L (0-15)
[2019-12-10 01:42] LABS: INR 0.91 (0.8-1.2)
[2019-12-10 01:44] LABS: Alanine Aminotransferase 12 U/L (0-41); Albumin Level 4.3 g/dL (3.5-5.2); Alkaline Phosphatase 97 IU/L (40-130); Anion Gap 16.6 (5-19); Aspartate Amino Transferase 11 U/L (0-40); Blood Urea Nitrogen 19 mg/dL (8-23); Calcium 9.2 mg/dL (8.5-10.5); Carbon Dioxide 26 mmol/L (22-29); Chloride 89 mmol/L (98-107); Creatine Phosphokinase 73 U/L (39-308); Creatinine Clr Calc Pharmacy 54.5545; Globulin 2.5 g/dL (1.3-4.6); Glucose 85 mg/dL (65-115); Lipase 39 U/L (13-60); NT Pro B Type Natriuretic Pept 8823 pg/mL (0-450); Osmolality Calculated 262 mOsm/kg (285-295); Potassium 3.6 mmol/L (3.5-5.1); Sodium 128 mmol/L (136-145); Total Bilirubin 0.8 mg/dL (0.15-1.2); Total Protein 6.8 g/dL (6.6-8.7)
[2019-12-10 01:49] LABS: Slide Review Slide Review Perform
--- NOTE | 2019-12-10 02:44 | ED_ITS ---
HPI - Altered Mental Status General: Chief Complaint: Altered Mental Status Stated Complaint: AMS Time Seen by Provider: 12/10/19 00:44 Source: patient and EMS Mode of arrival: EMS Limitations: no limitations History of Present Illness: HPI narrative: Mr. Brown is a 79-year-old male who comes in via EMS after he was found walking in front of the group home. He is not a resident of the group home but was noticed by nurses there and when he appeared confused they called EMS. EMS took him back to his home but then he appeared confused to them so they encouraged him to go to the emergency room and he is here now for evaluation. Patient is confused to place and time and recent events but is agreeable to get help. He states his only medical problem is chronic back pain. No family is available to give a history, old charts reveal a history of alcohol abuse and a recent admission and evaluation and transfer from our ER to [facility] for multiple fractures after a crush injury. Review of Systems Const: Denies: fever(s), chills, body aches, fatigue, malaise or diaphoresis Eyes: Denies: change in vision, blurry vision, blind spots, photophobia, eye discharge or eye redness ENMT: Denies: throat pain, odynophagia, hoarseness, swelling of lips/tongue, oral sores, ear or mastoid pain, ear discharge, change in hearing or nasal discharge Card: Denies: chest pain, palpitations, irregular heart rhythm, edema, lightheadedness, syncope, pre-syncope, dyspnea on exertion or orthopnea Resp: Denies: dyspnea, productive cough, non-productive cough, wheezing, hemoptysis or chest congestion GI: Denies: abdominal pain, nausea, vomiting, hematemesis, coffee ground emesis, heartburn, diarrhea, constipation, GI cramping, hematochezia or melena : Denies: flank pain, dysuria, urinary frequency, urinary urgency or hematuria Musc: Denies: neck pain, extremity pain, extremity swelling, joint pain, joint swelling, joint redness, joint warmth or joint stiffness Skin/Breast: Denies: rash, pruritus, erythema, skin tenderness or jaundice Neuro: Denies: headache(s), numbness in extremities, weakness in extremities, sensory changes, lack of coordination, difficulty walking, dizziness, vertigo, confusion, Slurred speech present or seizure-like activity Jose/Lymph: Denies: easy bruising, easy bleeding, petechiae, purpura or enlarged lymph nodes All/Imm: Denies: urticaria, throat swelling, tongue swelling, facial swelling or acute wheezing PFSH ED PFSH: Medical History (Updated 12/10/19 @ 04:19 by Caroline Duffy) Arm fracture, left Left femoral shaft fracture Surgical History (Updated 09/28/19 @ 17:15 by Mathieu Perdomo DO) History of open reduction and internal fixation (ORIF) procedure Social History Smoking and tobacco status: current every day smoker Physical Exam Const: COMMON NORMALS: no acute distress, no limitations, healthy appearing and well nourished GENERAL APPEARANCE: cooperative, well kempt and well developed HENMT: COMMON NORMALS: normocephalic, atraumatic, external ears normal, EAC's normal and Normal external nose present HEAD & SCALP: normal to inspection, normocephalic and atraumatic FACE & SINUS: normal facial exam and face symmetric NOSE: Normal external nose present and Normal nares present EXTERNAL EAR: Yes external ears normal EXTERNAL AUDITORY CANAL: EAC's normal MOUTH: Normal oral and palatal mucosa present, lip normal and tongue normal Eye: COMMON NORMALS: Equal, round and reactive pupils present and conjunctivae normal GENERAL EYE: appearance normal, both eyes and all related structures ALIGNMENT: Yes alignment normal PERIORBITAL: periorbital findings normal EYELID: eyelids normal CONJUNCTIVA: Yes conjunctivae normal SCLERA: sclerae normal PUPIL: Yes Equal, round and reactive pupils present Neck/C-Spine: COMMON NORMALS: full ROM, no lymphadenopathy, supple, no meningeal signs and no JVD GENERAL: Yes normal visual inspection and Yes trachea midline Chest: COMMONS NORMALS: normal inspection of the chest and normal palpation of entire chest wall Resp: COMMON NORMALS: normal respiratory effort, No retractions and No use of accessory muscles EFFORT & INSPECTION: Yes able to speak in complete sentences and Yes symmetric chest movement AUSCULTATION: no crackles, no rale s, no rhonchi and no wheezes Cardio: COMMON NORMALS: no JVD, regular rate, regular rhythm, S1 normal heart sound present and S2 normal heart sound present RATE: regular rate RHYTHM: regular rhythm HEART SOUNDS: S1 normal heart sound present, S2 normal heart sound present, no click, no gallops, no murmurs, no rubs and abnormal split S2 GI: COMMON NORMALS: Soft to palpation and No hepatosplenomegaly present PALPATION: Yes Soft to palpation, No Tenderness to palpation present (GI), No Guarding due to palpation present (GI), No Rigid due to palpation, Yes No hepatosplenomegaly present, No Hernia present, No Palpable mass present and No Pulsatile mass present : COMMON NORMALS: Yes no CVA tenderness BLADDER/KIDNEY EXAM: Yes no CVA tenderness Back/Pelvis: COMMON NORMALS: no CVA tenderness, thoracic and lumbar spine normal to inspection, no thoracic nor lumbar tenderness and thoraco-lumbar ROM normal Extremity: COMMON NORMALS: normal to inspection, full ROM, capillary refill normal, no joint enlargement, no clubbing, cyanosis or edema and no calf tenderness Neuro: COMMON NORMALS: CN's II-XII intact bilaterally, moves all extremities, no focal motor deficits and no sensory deficits noted MENINGEAL SIGNS: Yes no meningeal signs SPEECH: speech normal Psych: COMMON NORMALS: mental status grossly normal, Normal thought process present, cooperative, normal affect, speech normal and activity/motor behavior normal APPEARANCE: Yes well kempt SPEECH: Yes normal speech THOUGHT PROCESS: Normal thought process present Skin: COMMON NORMALS: no rashes or lesions noted, turgor normal, no jaundice, no petechiae and no mottling GENERAL SKIN EXAM: no rashes or lesions noted and turgor normal Course Vital Signs: Vital signs: Vital Signs Temperature 98 F 12/10/19 00:42 Pulse Rate 91 12/10/19 03:40 Respiratory Rate 16 12/10/19 03:40 Blood Pressure 125/86 12/10/19 03:40 Pulse Oximetry 98 12/10/19 03:40 MDM - Altered Mental Status MDM Narrative: Medical decision making narrative: The patient is also hallucinating and apparently seeing snakes and people in having hallucinations. Possible he is having alcohol withdrawal. He does not exhibit any hemodynamic instability. Because of the altered mental status with an unknown baseline I have endorsed the case to Dr. Gleason who is agreeable to admission to the hospital for further evaluation and care. Lab Data: Attestation: I reviewed the patient's lab results. Labs: Lab Results 12/10/19 12/10/19 12/10/19 Range/Units 01:12 01:12 01:12 WBC 9.4 (4.0-10.0) 10^3/ uL RBC 4.49 (4.1-5.3) 10^6/u L Hgb 13.6 (11.7-16.6) g/dL Hct 40.6 L (42.0-52.0) % MCV 90.4 (80-94) fL MCH 30.3 (28.0-34.0) pg MCHC 33.5 (30.0-36.0) g/dL RDW 12.6 (12.1-15.1) % Plt Count 228 (130-400) 10^3/c mm MPV 10.9 H (7.4-10.4) fL Neut % (Auto) 76.5 % Lymph % (Auto) 12.5 % [place] % (Auto) 9.1 % Eos % (Auto) 0.9 % Baso % (Auto) 0.6 % Neut # (Auto) 7.15 (1.8-7.7) 10^3/u L Lymph # (Auto) 1.2 (0.8-4.8) 10^3/u L [place] # (Auto) 0.9 (0.2-0.9) 10^3/u L Eos # (Auto) 0.1 (0.0-0.8) 10^3/u L Baso # (Auto) 0.1 (0.0-0.1) 10^3/u L Nucleated RBC % (a uto) 0 % Nucleated RBCs # 0.0 /100WBC PT 12.50 (10.5-13.3) SECO NDS INR 0.91 (0.8-1.2) Sodium 128 L (136-145) mmol/L Potassium 3.6 (3.5-5.1) mmol/L Chloride 89 L (98-107) mmol/L Carbon Dioxide 26 (22-29) mmol/L Anion Gap 16.6 (5-19) BUN 19 (8-23) mg/dL Creatinine 1.2 (0.7-1.2) mg/dL Glucose 85 (65-115) mg/dL Calculated Osmolal ity 262 L (285-295) mOsm/k g Lactic Acid (0.5-2.2) mmol/L Calcium 9.2 (8.5-10.5) mg/dL Magnesium 2.0 (1.7-2.3) mg/dL Total Bilirubin 0.8 (0.15-1.2) mg/dL AST 11 (0-40) U/L ALT 12 (0-41) U/L Alkaline Phosphata se 97 (40-130) IU/L Creatine Kinase 73 (39-308) U/L Troponin T Baselin e (0-15) ng/L NT-Pro-B Natriuret Pep 8823 H (0-450) pg/mL Total Protein 6.8 (6.6-8.7) g/dL Albumin 4.3 (3.5-5.2) g/dL Globulin 2.5 (1.3-4.6) g/dL Lipase 39 (13-60) U/L Free T4 1.76 (0.82-1.77) ng/d L Urine Color (Yellow) Urine Appearance (CLEAR) Urine pH (5-7) Ur Specific Gravit y (1.005-1.030) Urine Protein (Negative) Urine Glucose (UA) (Normal) Urine Ketones (Negative) Urine Blood (Negative) Urine Nitrate (Negative) Urine Bilirubin (NEGATIVE) Urine Urobilinogen (Negative) mg/dL Ur Leukocyte Leann ase (Negative) Urine RBC (0-2) /hpf Urine WBC (0-5) /hpf Ur Squamous Epith Cells (0-5) Urine Bacteria (NONE) Hyaline Casts Urine Mucus Urine Opiates Scre en (Negative) ng/mL Ur Barbiturates Sc reen (Negative) ng/mL Ur Phencyclidine S crn (Negative) ng/mL Ur Amphetamines Sc reen (Negative) ng/mL U Benzodiazepines Scrn (Negative) ng/mL Urine Cocaine Scre en (Negative) ng/mL U Marijuana (THC) Screen (Negative) ng/mL Ethyl Alcohol (0-10) mg/dL 12/10/19 12/10/19 12/10/19 Range/Units 01:12 01:12 02:14 WBC (4.0-10.0) 10^3/ uL RBC (4.1-5.3) 10^6/u L Hgb (11.7-16.6) g/dL Hct (42.0-52.0) % MCV (80-94) fL MCH (28.0-34.0) pg MCHC (30.0-36.0) g/dL RDW (12.1-15.1) % Plt Count (130-400) 10^3/c mm MPV (7.4-10.4) fL Neut % (Auto) % Lymph % (Auto) % [place] % (Auto) % Eos % (Auto) % Baso % (Auto) % Neut # (Auto) (1.8-7.7) 10^3/u L Lymph # (Auto) (0.8-4.8) 10^3/u L [place] # (Auto) (0.2-0.9) 10^3/u L Eos # (Auto) (0.0-0.8) 10^3/u L Baso # (Auto) (0.0-0.1) 10^3/u L Nucleated RBC % (a uto) % Nucleated RBCs # /100WBC PT (10.5-13.3) SECO NDS INR (0.8-1.2) Sodium (136-145) mmol/L Potassium (3.5-5.1) mmol/L Chloride (98-107) mmol/L Carbon Dioxide (22-29) mmol/L Anion Gap (5-19) BUN (8-23) mg/dL Creatinine (0.7-1.2) mg/dL Glucose (65-115) mg/dL Calculated Osmolal ity (285-295) mOsm/k g Lactic Acid 1.4 (0.5-2.2) mmol/L Calcium (8.5-10.5) mg/dL Magnesium (1.7-2.3) mg/dL Total Bilirubin (0.15-1.2) mg/dL AST (0-40) U/L ALT (0-41) U/L Alkaline Phosphata se (40-130) IU/L Creatine Kinase (39-308) U/L Troponin T Baselin e 53 H (0-15) ng/L NT-Pro-B Natriuret Pep (0-450) pg/mL Total Protein (6.6-8.7) g/dL Albumin (3.5-5.2) g/dL Globulin (1.3-4.6) g/dL Lipase (13-60) U/L Free T4 (0.82-1.77) ng/d L Urine Color (Yellow) Urine Appearance (CLEAR) Urine pH (5-7) Ur Specific Gravit y (1.005-1.030) Urine Protein (Negative) Urine Glucose (UA) (Normal) Urine Ketones (Negative) Urine Blood (Negative) Urine Nitrate (Negative) Urine Bilirubin (NEGATIVE) Urine Urobilinogen (Negative) mg/dL Ur Leukocyte Leann ase (Negative) Urine RBC (0-2) /hpf Urine WBC (0-5) /hpf Ur Squamous Epith Cells (0-5) Urine Bacteria (NONE) Hyaline Casts Urine Mucus Urine Opiates Scre en Negative (Negative) ng/mL Ur Barbiturates Sc reen Negative (Negative) ng/mL Ur Phencyclidine S crn Negative (Negative) ng/mL Ur Amphetamines Sc reen Negative (Negative) ng/mL U Benzodiazepines Scrn Negative (Negative) ng/mL Urine Cocaine Scre en Negative (Negative) ng/mL U Marijuana (THC) Screen Negative (Negative) ng/mL Ethyl Alcohol (0-10) mg/dL 12/10/19 12/10/19 Range/Units 02:47 02:53 WBC (4.0-10.0) 10^3/ uL RBC (4.1-5.3) 10^6/u L Hgb (11.7-16.6) g/dL Hct (42.0-52.0) % MCV (80-94) fL MCH (28.0-34.0) pg MCHC (30.0-36.0) g/dL RDW (12.1-15.1) % Plt Count (130-400) 10^3/c mm MPV (7.4-10.4) fL Neut % (Auto) % Lymph % (Auto) % [place] % (Auto) % Eos % (Auto) % Baso % (Auto) % Neut # (Auto) (1.8-7.7) 10^3/u L Lymph # (Auto) (0.8-4.8) 10^3/u L [place] # (Auto) (0.2-0.9) 10^3/u L Eos # (Auto) (0.0-0.8) 10^3/u L Baso # (Auto) (0.0-0.1) 10^3/u L Nucleated RBC % (a uto) % Nucleated RBCs # /100WBC PT (10.5-13.3) SECO NDS INR (0.8-1.2) Sodium (136-145) mmol/L Potassium (3.5-5.1) mmol/L Chloride (98-107) mmol/L Carbon Dioxide (22-29) mmol/L Anion Gap (5-19) BUN (8-23) mg/dL Creatinine (0.7-1.2) mg/dL Glucose (65-115) mg/dL Calculated Osmolal ity (285-295) mOsm/k g Lactic Acid (0.5-2.2) mmol/L Calcium (8.5-10.5) mg/dL Magnesium (1.7-2.3) mg/dL Total Bilirubin (0.15-1.2) mg/dL AST (0-40) U/L ALT (0-41) U/L Alkaline Phosphata se (40-130) IU/L Creatine Kinase (39-308) U/L Troponin T Baselin e (0-15) ng/L NT-Pro-B Natriuret Pep (0-450) pg/mL Total Protein (6.6-8.7) g/dL Albumin (3.5-5.2) g/dL Globulin (1.3-4.6) g/dL Lipase (13-60) U/L Free T4 (0.82-1.77) ng/d L Urine Color Yellow (Yellow) Urine Appearance Clear (CLEAR) Urine pH 6 (5-7) Ur Specific Gravit y 1.020 (1.005-1.030) Urine Protein Neg (Negative) Urine Glucose (UA) Norm (Normal) Urine Ketones 1+ H (Negative) Urine Blood Neg (Negative) Urine Nitrate Negative (Negative) Urine Bilirubin Neg (NEGATIVE) Urine Urobilinogen Norm (Negative) mg/dL Ur Leukocyte Leann ase Negative (Negative) Urine RBC 0-4 H (0-2) /hpf Urine WBC 0-4 H (0-5) /hpf Ur Squamous Epith Cells Rare (0-5) Urine Bacteria 1+ H (NONE) Hyaline Casts 0-4 H Urine Mucus 2+ Urine Opiates Scre en (Negative) ng/mL Ur Barbiturates Sc reen (Negative) ng/mL Ur Phencyclidine S crn (Negative) ng/mL Ur Amphetamines Sc reen (Negative) ng/mL U Benzodiazepines Scrn (Negative) ng/mL Urine Cocaine Scre en (Negative) ng/mL U Marijuana (THC) Screen (Negative) ng/mL Ethyl Alcohol < 10 (0-10) mg/dL Imaging Data^: CT Head: Radiologist's impression: [address] [address] [address] Scan Report Signed Patient: Lia Florentino Unit #: [id number] : 07/16/1935 Age/Sex: 84 / F ADM Date: 12/09/19 Loc: ER Room/Bed: Attending Dr: Ordering Provider/Ordering MD: Caroline Duffy DO Date of Service: 12/09/19 Procedure(s): CT head wo con* [id number] Accession Number(s): [id number] Report Number: [id number] PROCEDURE INFORMATION: Exam: CT Head Without Contrast Exam date and time: 12/09/2019 11:53 PM Age: 84 years old Clinical indication: Altered mental status/memory loss; Confusion or disorientation TECHNIQUE: Imaging protocol: Computed tomography of the head without contrast. Radiation optimization: All CT scans at this facility use at least one of these dose optimization techniques: automated exposure control; mA and/or kV adjustment per patient size (includes targeted exams where dose is matched to clinical indication); or iterative reconstruction. COMPARISON: No relevant prior studies available. RADIATION DOSE METRICS: Total DLP (mGy-cm): 982.15 FINDINGS: Brain: Subacute infarction changes are observed in the left MCA territory involving the posterior insula, and the left temporal, parietal and occipital lobes. Mild atrophy and mild white matter chronic microvascular changes are noted. No hemorrhage. Ventricles: Normal. No ventriculomegaly. Bones/joints: Unremarkable. No acute fracture. Sinuses: Visualized sinuses are unremarkable. No fluid levels. Mastoid air cells: Visualized mastoid air cells are well aerated. Soft tissues: Unremarkable. CT/CT head wo con* [id number] IMPRESSION: Large left MCA territory subacute infarction. Radiation Dose CTDIVOL = (mGy): DLP = 982.15 (mGy-cm) Dictated By: Daniel Feliciano MD Signed By: Daniel Feliciano MD Signed Date/Time: 12/10/19216 DD/ 5 EKG Data^: EKG 1: Attestation: I personally reviewed and interpreted this EKG as follows: EKG interpretation date: 12/10/19 EKG interpretation time: 01:39 Interpretation: Normal sinus rhythm at 74 beats a minute, T waves inverted 2, 3, aVF, V3 through V6. No old for comparison. EKG 2: Attestation: I personally reviewed and interpreted this EKG as follows: EKG interpretation date: 12/10/19 EKG interpretation time: 02:51 Interpretation: Normal sinus rhythm at 93 beats a minute, T waves inverted V2, V4 through V6. Suspect leads V2 and V3 reversal. PVC. T waves also inverted 2, 3 and aVF. Similar to previous. Discharge Plan Discharge Patient Disposition: Placed in Observation Admit Provider: Dilshad Rogel Clinical Impression: Altered mental status Condition: Stable Coding Level of Care Code ED Building Certifier for Brendon Jon
--- NOTE | 2019-12-10 02:50 | ECG_ITS ---
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 Measurements Intervals Spring Rate: 93 P: 80 FL: 211 QRS: -16 QRSD: 140 T: 253 QT: 409 QTc: 511 Interpretive Statements SINUS RHYTHM WITH FIRST DEGREE AV BLOCK WITH OCCASIONAL VENTRICULAR PREMATURE COMPLEXES INTRAVENTRICULAR CONDUCTION DELAY [130+ ms QRS DURATION] Compared to ECG 12/10/2019 01:39:09 Ventricular premature complex(es) now present First degree AV block now present Myocardial infarct finding no longer present Electronically Signed On 12-11-2019 1:34:13 CDT by Dedrick Mcgarry M.D. [email or web address]
[2019-12-10 03:20] LABS: Amphetamines Screen Urine Negative (Negative); Barbiturates Screen Urine Negative (Negative); Benzodiazepines Screen Urine Negative (Negative); Cocaine Screen Urine Negative (Negative); Opiate Screen Urine Negative (Negative); PCP Screen Urine Negative (Negative); THC Screen Urine Negative (Negative)
[2019-12-10 03:21] LABS: Free T4 Free Thyroxine 1.76 ng/dL (0.82-1.77)
[2019-12-10 03:25] LABS: Bacteria Urine 1+; Bilirubin Urine Neg (NEGATIVE); Blood Urine Neg (Negative); Glucose Urine UA Norm (Normal); Hyaline Casts Urine 0-4; Ketones Urine 1+ (Negative); Leukocyte Esterase Urine Negative (Negative); Mucus Urine 2+; Nitrate Urine Negative (Negative); Protein Urine Neg (Negative); RBC Urine 0-4 /hpf (0-2); Squamous Epithelial Cell Urine RARE (0-5); Urine Appearance Clear (CLEAR); Urine Color Yellow (Yellow); Urobilinogen Urine Norm (Negative); WBC Urine 0-4 /hpf (0-5); pH Urine 6 (5-7)
[2019-12-10 03:29] LABS: Alcohol Level < 10 mg/dL (0-10)
[2019-12-10] MEDS: folic acid 1 MG, multivitamin inj 10 ML, thiamine 100 MG in sodium chloride 0.9% 1,000 ML 252.8 MG IV (03:33)
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
--- NOTE | 2019-12-10 04:47 | USCV_ITS ---
Kate Brown Age: 79 Gender: M : 1940 Exam Date: 12/10/2019 05:31 Ordering Phys: Dilshad Rogel MD Technologist: Tara Flores [place] [facility] [place]: ELEVATED TROPONIN BP: / HR: 66 Rhythm: Sinus Technical Quality: Adequate MEASUREMENTS (Male / Female) Normal Values 2D ECHO LV Diastolic Diameter PLAX 3.5 cm 4.2 - 5.9 / 3.9 - 5.3 cm LV Systolic Diameter PLAX 1.6 cm LV Chamber Size 3.6 cm IVS Diastolic Thickness 1.8 cm 0.6 - 1.0 / 0.6 - 0.9 cm IVS Systolic Thickness 1.9 cm LVPW Diastolic Thickness 1.5 cm 0.6 - 1.0 / 0.6 - 0.9 cm LVPW Systolic Thickness 1.9 cm RV Chamber Size 2.4 cm LVOT Diameter 2.1 cm LV Ejection Fraction 2D Teich 86.7 % LV Ejection Fraction MOD 2C 59.9 % LV Ejection Fraction 2C AL 63.1 % LA Diameter 2.8 cm LA Width 3.0 cm LA Height 3.5 cm RA Width 3.4 cm RA Height 4.8 cm Aorta at Sinotubular Diameter 3.6 cm M-MODE LV Diastolic Diameter MM 2.6 cm 4.2 - 5.9 / 3.9 - 5.3 cm LV Systolic Diameter MM 1.4 cm LV Ejection Fraction MM Teich 80.6 % IVS Diastolic Thickness MM 1.2 cm 0.6 - 1.0 / 0.6 - 0.9 cm IVS Systolic Thickness MM 1.0 cm LVPW Diastolic Thickness MM 1.1 cm 0.6 - 1.0 / 0.6 - 0.9 cm LVPW Systolic Thickness MM 0.9 cm RV Diastolic Diameter MM 0.7 cm Aortic Annulus Diameter 3.5 cm LA Ao Ratio MM 0.8 MV E Point Septal Separation 0.7 cm DOPPLER AV Peak Velocity 127.0 cm/s LVOT Peak Velocity 96.0 cm/s AV Area Cont Eq vti 3.2 cm squared AV Area Cont Eq pk 2.6 cm squared MV Area PHT 6.7 cm squared Mitral E to A Ratio 0.6 MV E' Velocity 7.0 cm/s Mitral E to MV E' Ratio 8.0 Mitral E to LV E' Lateral Ratio 7.7 Mitral E to LV E' Septal Ratio 8.4 TR Peak Velocity 237.0 cm/s TR Peak Gradient 22.5 mmHg TR Mean Velocity 139.5 cm/s TR Mean Gradient 9.2 mmHg TR Velocity Time Integral 55.2 cm TV Peak E Velocity 58.0 cm/s Right Atrial Pressure 3.0 mmHg Pulmonary Artery Systolic Pressu 25.5 mmHg PV Peak Velocity 56.0 cm/s RV Acceleration Time 0.1 s RV Ejection Time 0.4 s RV AcT/ET 0.3 FINDINGS Left Ventricle Normal LV size and ejection fraction 55%. Mild hypokinesia of the LV apex.Grade I/IV diastolic dysfunction (abnormal relaxation filling pattern), normal to mildly elevated filling pressures. Right Ventricle The right ventricle is normal in size and function. Right Atrium Mildly increased right atrial size. Left Atrium Left atrium is of normal size Mitral Valve No gross abnormalities noted Aortic Valve No gross abnormalities noted Tricuspid Valve Trace tricuspid valve regurgitation. Pulmonic Valve No gross abnormalities noted Pericardium Normal pericardium without effusion. Aorta Mildly dilated ascending aorta measuring 3.6 cm CONCLUSIONS Normal LV size and ejection fraction 55%. Mild hypokinesia of the LV apex.Grade I/IV diastolic dysfunction (abnormal relaxation filling pattern), normal to mildly elevated filling pressures. Normal cardiac chamber sizes. No significant stenotic or regurgitant lesions. Mildly dilated ascending aorta measuring 3.6 cm. There is no pericardial effusion. There are no intracardiac masses. There are no prior echocardiogram studies to compare. Dr Dedrick Mcgarry MD FACC (Electronically Signed) Final Date: 10 December 2019 20:07 S
[2019-12-10 06:36] LABS: Ammonia 12 umol/L (16-60)
--- NOTE | 2019-12-10 06:50 | ECG_ITS ---
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 Measurements Intervals [place] Rate: 67 P: MS: -1 QRS: -15 QRSD: 134 T: 258 QT: 468 QTc: 495 Interpretive Statements Normal sinus rhythm with occasional supraventricular ectopics Diffuse T wave changes INTRAVENTRICULAR CONDUCTION DELAY [130+ ms QRS DURATION] INTERPRETATION BASED ON A DEFAULT AGE OF 40 YEARS Compared to ECG 12/10/2019 02:51:32 First degree AV block no longer present Electronically Signed On 12-11-2019 1:37:38 CDT by Dedrick Mcgarry M.D. [id number]
[2019-12-10 06:58] LABS: Vitamin B12 582 pg/mL (232-1245)
[2019-12-10 07:22] LABS: Folate Level > 20.0 ng/mL (4.5-32.2)
[2019-12-10] MEDS: dextrose 5%-sod chloride 0.45% 1,000 ML 100 ML IV (08:03)
--- NOTE | 2019-12-10 08:06 | PC.NURSE ---
Patient awakened easily, set up for breakfast and eating well. Patient not able to answer MRI question/sheet.
--- NOTE | 2019-12-10 11:14 | PC.NURSE ---
Attempted to get information from patient for pre-cert MRI, Patient was still unable to give any history.
--- NOTE | 2019-12-10 11:51 | CTR_ITS ---
PROCEDURE INFORMATION: Exam: CT Chest Without and With Contrast Exam date and time: 12/10/2019 4:28 PM Age: 79 years old Clinical indication: Abdominal tenderness; Shortness of breath; Prior surgery; Additional info: R/O bleed, infectious source TECHNIQUE: Imaging protocol: Computed tomography of the chest without and with intravenous contrast. Radiation optimization: All CT scans at this facility use at least one of these dose optimization techniques: automated exposure control; mA and/or kV adjustment per patient size (includes targeted exams where dose is matched to clinical indication); or iterative reconstruction. Contrast material: VISI 320; Contrast volume: 95 ml; Contrast route: INTRAVENOUS (IV); COMPARISON: CT chest abd pel w con* 09/28/2019 8:21 PM RADIATION DOSE METRICS: Total DLP (mGy-cm): 1099.89 FINDINGS: Lungs: there is severe emphysematous changes. There is subpleural atelectasis of the dependent portions of the lungs. The spiculated nodular density in the right lung today image 37 measures 1.2 by 1.0 cm and is unchanged compared to the prior exam. Unchanged apical fibrosis or scarring. Pleural space: Unremarkable. No pneumothorax. No pleural effusion. Heart: Unremarkable. No cardiomegaly. No pericardial effusion. Pulmonary arteries: There is no pulmonary embolus. Aorta: Moderate atherosclerotic changes are noted in the descending thoracic aorta. Ascending thoracic aorta is a transverse measurement of 4 cm. Lymph nodes: Unremarkable. No enlarged lymph nodes. Bones/joints: There is osteopenia. No acute bony abnormality. Unchanged old right rib fracture deformities. Soft tissues: There is a probable sebaceous cyst in the subcutaneous fat of the midline upper back measuring 3.3 x 2.0 cm in size which is slightly larger than the prior exam where measured 3.0 by 2.0 cm. Other findings: Calcified granulomas are noted. No dissection. No new or enlarging pulmonary nodule. IMPRESSION: 1. There is no pulmonary embolus. 2. Unchanged spiculated pulmonary nodule right lung. This has been a 2 month follow-up. Additional follow-up in [address] at 3 and [address] CT at 6-12 months to confirm persistence of the nodule, then CT at 3 and at 5 years. (Brielle et al., Fleischner Society, 2017) PROCEDURE INFORMATION: Exam: CT Abdomen And Pelvis Without And With Contrast Exam date and time: 12/10/2019 4:28 PM Age: 79 years old Clinical indication: Abdominal tenderness; Shortness of breath; Prior surgery; Additional info: R/O bleed, infectious source TECHNIQUE: Imaging protocol: Computed tomography of the abdomen and pelvis without and with intravenous contrast. Radiation optimization: All CT scans at this facility use at least one of these dose optimization techniques: automated exposure control; mA and/or kV adjustment per patient size (includes targeted exams where dose is matched to clinical indication); or iterative reconstruction. Contrast material: VISI 320; Contrast volume: 95 ml; Contrast route: INTRAVENOUS (IV); COMPARISON: CT chest abd pel w con* 09/28/2019 8:21 PM RADIATION DOSE METRICS: Total DLP (mGy-cm): 1099.89 FINDINGS: Mediastinal space: A small hiatal hernia is present. Liver: Unremarkable.No mass. Gallbladder and bile ducts: Multiple calcified gallstones are present. There is no wall thickening or pericholecystic fluid to suggest cholecystitis. There is no common bile duct dilation. Pancreas: Normal. No ductal dilation. Spleen: Normal. No splenomegaly. Adrenals: Normal. No mass. Kidneys and ureters: There is no evidence of hydronephrosis. There is no evidence of renal calcifications. There is a 1.3 cm lower pole simple cyst in the right kidney. Stomach and bowel: There is no evidence of intestinal perforation or obstruction. Moderate diverticulosis is present in the distal colon. The wall of the distal sigmoid colon and rectum appears mildly thickened. This could be lack of distention versus mild colitis. The remaining loops of bowel have an appropriate appearance. Appendix: A normal appendix is identified. Intraperitoneal space: Unremarkable. No free air. No significant fluid collection. No retroperitoneal fluid collection or hematoma. No active extravasation of contrast. No new hematoma compared to the prior exam. Vasculature: The aorta demonstrates moderate atherosclerotic calcification. Lymph nodes: Unremarkable.No enlarged lymph nodes. Bladder: There is nonspecific bladder wall thickening. This may be related to incomplete distention. Reproductive: The prostate demonstrates moderate nonspecific enlargement. The seminal vesicles are normal. The prostate demonstrates nonspecific parenchymal calcifications. Bones/joints: Postoperative internal fixation of the right ilium and sacral fracture with postoperative internal fixation of the sacral iliac joint diastasis is noted. Postoperative left acetabulum fracture are noted. There is bony remodeling with callus formation. There is also a healing fracture of the left inferior pubic ramus. Unchanged lumbar transverse process fractures are also noted. No new fracture compared to the old exam. There is marked disc space narrowing with endplate degenerative changes at L5-S1. Soft tissues: Improved pelvic sidewall hematoma is a muscle edema especially the right iliacus muscle. CT/CT chest abd pel wo/w con IMPRESSION: 1. Improving pelvic sidewall hematoma and muscle edema compared to the prior study. No new fluid collection or hematoma. No active extravasation of contrast. 2. The wall of the distal sigmoid colon and rectum appears mildly thickened. This could be lack of distention versus mild colitis. 3. Satisfactory appearance of the healing multiple lumbar spine and pelvic fracture deformities with postoperative changes as above. No acute bony abnormality. COMMENTS: Consistent with the [employer]'s Incidental Findings Committee white paper (J Am Omayra Radiol 2018): Any incidental renal lesion less than 1.0 cm or classified as too small to characterize, or any incidental cystic renal lesion characterized as simple-appearing, is likely benign. No follow-up imaging is recommended for these lesions per consensus recommendations based on imaging criteria. Radiation Dose CTDIVOL = (mGy): DLP = 1099.89~1099.89 (mGy-cm)
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
[2019-12-10 12:27] LABS: Potassium, Radom Urine 34 mmol/L; Urine Random Sodium 26 mmol/L
[2019-12-10 12:33] LABS: Urine Random Chloride 18 mmol/L
[2019-12-10 12:35] LABS: Troponin 5 2HR 39.81 ng/L (0-15)
[2019-12-10 12:35] LABS: Troponin 5 6HR 40.37 ng/L (0-15)
[2019-12-10 12:42] LABS: Procalcitonin 0.08 ng/mL (0-0.5)
[2019-12-10 12:53] LABS: Iron 37 ug/dL (59-158); Percent Saturation 22.4 % (20-50); Sodium 130 mmol/L (136-145); Total Iron Binding Capacity 165 mcg/dl; Unsaturated Iron Binding 128 ug/dL (112-347)
[2019-12-10] MEDS: folic acid 1 mg Tablet PO (16:08)
[2019-12-10] MEDS: famotidine 20 mg/2 mL INJ IVP (16:08)
[2019-12-10] MEDS: thiamine 100 mg Tablet PO (16:08)
[2019-12-10 16:44] LABS: Hepatitis A Antibody IgM Non-Reactive (Nonreactive); Hepatitis B Surface AB 3.5 (0-8.5); Hepatitis B Surface Antigen Non-Reactive (Nonreactive); Hepatitis C Virus Antibody Non-Reactive (Nonreactive)
[2019-12-10 16:49] LABS: Rapid Plasma Reagin Syphilis Nonreactive (Nonreactive)
[2019-12-10] MEDS: iodixanol 320 mg/mL 100mL Btl IV (16:55)
[2019-12-10 17:15] LABS: HIV 1 & 2 Antibody Non-Reactive (Non-Reactiv); HIV 1 & 2 Antigen Non-Reactive (Non-Reactiv)
[2019-12-10 17:59] LABS: Hepatitis B Core AB, Total Non-Reactive (Nonreactive)
[2019-12-10 18:41] LABS: Sodium 134 mmol/L (136-145)
--- NOTE | 2019-12-10 19:47 | PC.NURSE ---
patient gave wallet over to patient care nurse Lucy TRAORE. contents of wallet were counted in front of patient. there were 32 one hundred dollar bills, and 2 ten dollar bills a total of $3200.00 security was called and money was again counted with them, security kept money and wallet in their possession to be locked up with them until he is discharged
--- NOTE | 2019-12-10 22:31 | PC.NURSE ---
DURING THE SHIFT ASSESSMENT THE PATIENT REPORTED HE IS HALLUCINATING AND SEEING SNAKES COMING FROM THE HAND MOBILE MANAGER ON THE WALL. HE STATES THEY CRAWL INTO HIS BED AND TELL HIM THEY ARE THERE TO KEEP HIM SAFE. HE STATES HE REALIZES THEY ARE NOT REAL AND THEY ARE A HALLUCINATION.
[2019-12-11] VITALS (7 sets, daily range): BP systolic 124–130; BP diastolic 70–74; PULSE 72–81; RESP 18; TEMP 36.9–37.1; O2SAT 94–95
--- NOTE | 2019-12-11 00:42 | PC.NURSE ---
DURING THE MIDNIGHT ROUNDING THE PATIENT REPORTS HE IS EXPERIENCING SOME BURNING AND ITCHING TO HIS GROIN AREA. UPON INSPECTION IT IS NOTED THE PATIENT IS RED AND IRRITATED IN THE AREAS COVERED BY HIS DISPOSABLE BRIEF. THE AREA IS RED AND WARM TO TOUCH. WHEN THE PATIENT WAS ASKED TO ROLL OVER TO INSPECT THE BACK SIDE, IT IS SEEN THAT THE BOTTOM IS ALSO RED AND WARM TO TOUCH. CALED THE O/C PHYSICIAN AND DESCRIBE THE SKIN CHANGES. HE WAS ON THE FLOOR AND DID A PHYSICAL ASSESSMENT. HE WANTS THE AREAS MONITORED. THE BOUNDARIES WERE MARKED WITH A MARKER TO MONITOR ANY PROGRESSION.
[2019-12-11 07:13] LABS: Basophils % 0.4 %; Eosinophils # 0.3 10^3/uL (0.0-0.8); Hematocrit 35.4 % (42.0-52.0); Lymphocytes # 1.4 10^3/uL (0.8-4.8); Mean Corpuscular HGB Conc 33.9 g/dL (30.0-36.0); Mean Corpuscular Hemoglobin 31.3 pg (28.0-34.0); Mean Corpuscular Volume 92.4 fL (80-94); Mean Platelet Volume 9.7 fL (7.4-10.4); Monocytes # 0.6 10^3/uL (0.2-0.9); Monocytes % 5.2 %; Neutrophils % 78.1 %; Nucleated Red Blood Cells % 0 %; Platelet Count 233 10^3/cmm (130-400); Red Blood Count 3.83 10^6/uL (4.1-5.3); Red Cell Distribution Width 12.9 % (12.1-15.1); White Blood Count 10.9 10^3/uL (4.0-10.0)
[2019-12-11 07:36] LABS: Chol HDL Ratio 2.66 mg/dL (1.0-5.00); Cholesterol 117 mg/dL (0-200); HDL Cholesterol 44 mg/dL (60-100); LDL Cholesterol Calculated 60 mg/dL (50-129); Triglycerides 63 mg/dL (0-150); VLDL Cholestrol Calculation 13 mg/dL (0-30)
[2019-12-11] MEDS: budesonide 0.5 mg/2 mL Neb INHALATION (08:07)
[2019-12-11] MEDS: ipratropium-albuterol 3 mL Neb INHALATION (08:07)
[2019-12-11] MEDS: thiamine 100 mg Tablet PO (08:17)
[2019-12-11] MEDS: aspirin 81 mg EC Tablet PO (08:18)
[2019-12-11] MEDS: folic acid 1 mg Tablet PO ×2 (08:18→17:11)
[2019-12-11 09:00] LABS: Alanine Aminotransferase 8 U/L (0-41); Albumin Level 3.3 g/dL (3.5-5.2); Alkaline Phosphatase 72 IU/L (40-130); Anion Gap 14.5 (5-19); Aspartate Amino Transferase 8 U/L (0-40); Blood Urea Nitrogen 18 mg/dL (8-23); Carbon Dioxide 22 mmol/L (22-29); Chloride 101 mmol/L (98-107); Globulin 2.2 g/dL (1.3-4.6); Glucose 94 mg/dL (65-115); Osmolality Calculated 274 mOsm/kg (285-295); Potassium 3.5 mmol/L (3.5-5.1); Sodium 134 mmol/L (136-145); Total Bilirubin 0.6 mg/dL (0.15-1.2); Total Protein 5.5 g/dL (6.6-8.7)
--- NOTE | 2019-12-11 10:24 | PC.CHAP ---
Pastoral Care Encounter/Spiritual Assessment Type of Contact [] Declined tile mechanic visit [] Patient/Family/Request visit [] Outpatient visit [] Follow-up visit [] Physician referral [] Code/Alert [x Routine visit [] Staff referral [] Actively dying [] Patient sleeping [] Family support [] [] Out of room [] Palliative care [] [] Receiving care in room [] Pre-surgical visit [] Trauma [] Long length of stay [] ICU visit [] Other: Relational/Emotional Strength [] Patient feels connected with others/family/visitors/staff [] Distress [] Loneliness/isolation [] Abandonment Spirituality of Patient [] Person of Edwige [] Attends Yarsanism of their Edwige [] Believes in Prayer [] Reads Bible or Orthodox materials [] There are Spiritual issues to be addressed Sales And Marketing Assistant Interventions [] Prayer [] Active listening [] Non-anxious presence [] Spiritual/emotional support [] Crisis/trauma care [] Spiritual counseling [] Bereavement support [] Provided bereavement packet [] Provided Bible/devotional materials [] Provided toy/stuffed animal, coloring book to patient or family member [] Provided Communion [] Anointing/[place] [] Salvation [x] Completed spiritual assessment [] Other: Impact on Illness or Injury [x] Angry [] Fearful [x] Anxious [] Often cries [] Exhaustion [] Unable to work [] Unable to attend confucianist [] Unable to walk/stand [] Unable to read [] Unable to drive [] Unable to eat/drink [] Unable to sleep [] Unable to be with family [] Patient intubated [] Other: Summary Patient not sure why he is in hospital. thinks he is being help here, and not allowed to go home. NOT sure where to go, home is not a good please. Perhaps a SS worker could visit. Time spent with patient 10 min
--- NOTE | 2019-12-11 12:12 | MR_ITS ---
WS: [id number] MRI HEAD WITHOUT CONTRAST TECHNIQUE: Sagittal T1, T2 axial, T2 axial FLAIR, axial and coronal T1 images, axial susceptibility w eighted imaging, axial diffusion weighted images, and coronal T2 images were obtained. CLINICAL INFORMATION: wenicke's enceph COMPARISON: CT December 10, 2019 FINDINGS: No evidence of restricted diffusion to suggest acute ischemia. Ventricular system and basal cisterns are patent. Moderate small vessel changes. Advanced parenchymal volume loss. Small vessel changes in the neeru. Bilateral chronic lacunar infarcts in the cerebellum. Moderate superior vermian atrophy. So mewhat diminutive mammillary bodies. Normal vascular flow voids at the skull base. No extra-axial fluid collections. Paranasal sinuses and mastoid air cells appear well aerated. Moderate diffuse thinning of the corpus callosum. No hemoside rin on susceptibly weighted images. Normal optic chiasm and pituitary infundibulum. Moderate symmetric atrophy involving the temporal lob es and hippocampal formations. MR/MR head wo con* [id number] IMPRESSION: 1. No evidence of restricted diffusion to suggest acute ischemia. 2. Moderate small vessel changes with moderate to advanced parenchymal volume loss. 3. Chronic lacunar infarcts in the right greater than left cerebellum. 4. No hemosiderin on susceptibly weighted images. 5. No acute signal abnormality or edema involving the thalami or midbrain. 6. 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
[2019-12-11] MEDS: famotidine 20 mg/2 mL INJ IVP (12:13)
--- NOTE | 2019-12-11 12:55 | PC.RESP ---
Smoking Cessation information sent to patient.
--- NOTE | 2019-12-11 13:43 | P.PN_ITS ---
Subjective Subjective: Interval history: No acute events overnight. Denies of having any nausea, vomiting. On examination patient is a lot more awake. He states he continues to have hallucinations. Hallucinations he describes as snakes crawling out of the freeman and talking to him. He denies of any nausea, vomiting, headache, chest pain. Examination patient is sitting up in bed having his meal. Just prior to me coming into the room he was talking to his girlfriend Ms. Atkinson. Vitals/I&O/Wt Last Vital Signs Temp 98.5 F 12/11/19 11:56 Pulse 77 12/11/19 11:56 Resp 18 12/11/19 11:56 BP 125/74 12/11/19 11:56 Pulse Ox 94 12/11/19 11:56 12/10/19 12/11/19 12/11/19 22:59 06:59 14:59 Intake Total 240 / 840 360 / 1200 440 / 440 Output Total 550 / 1050 2 / 2 Balance 240 / 340 -190 / 150 438 / 438 Weight last 48 hrs Weight 72.121 kg Weight 71.356 kg Weight 77.111 kg Physical Exam Narrative: EXAM NARRATIVE: General: No acute distress, drowsy but arousable, AO x3 HEENT: PERRLA, pupils bilaterally equal and reactive Chest: Normal vesicular breath sounds, no added sounds, equal good air entry bilaterally CVS: S1-S2 regular, no murmurs, no tachycardia, no gallops, no rubs Abdomen: Soft, nontender, no organomegaly, bowel sounds present Neuro: No focal deficits, no facial deformity, AO x3, power 5/5 in all limbs Data : 12/11/19 05:35 12/11/19 05:35 Micro: Microbiology 12/10/19 12:48 Blood Culture - Preliminary Blood NEGATIVE TO DATE 12/10/19 12:48 Blood Culture - Preliminary Blood NEGATIVE TO DATE 12/10/19 14:20 MRSA Culture - Final Nose A&P Assessment and plan (1) Wernickes encephalopathy: Status: Acute (2) Altered mental status: Status: Acute Qualifiers: Altered mental status type: delirium Qualified Code(s): R41.0 - Disorientation, unspecified (3) Hyponatremia: Status: Acute (4) Troponin level elevated: Status: Acute (5) Elevated brain natriuretic peptide (BNP) level: As above. Status: Acute Additional A&P Information Altered mental status: As per Dr. Castanon patient is generally healthy as per his knowledge though he has seen patient only once. Patient states he is a chronic smoker and consumes alcohol occasionally. He continues to have occasional hallucinations. Blood work done shows a normal ammonia levels mildly elevated CK, UA negative for any source of infection, normal vitamin B12 and folate levels, negative U tox, negative alcohol level. CT head done negative for any acute abnormality. CT chest abdomen pelvis done yesterday negative for any acute process. HIV, hepatitis panel, RPR levels negative. MRI brain done today negative for any acute ischemia but consistent with Wernicke's chronic alcohol encephalopathy. We will consult psychiatry to see if he can start patient on an oral therapy. Patient would most likely require behavioral health follow-up as an outpatient. Continue with oral thiamine and folic acid. Hyponatremia: Resolved after the fluid was stopped. Back to 134 today morning. Baseline seems sugar 138. Most likely secondary to SIADH. CT chest consistent with possible pulmonary nodule for which he requires some yearly follow-up. SIADH work-up HIV is negative, will check QuantiFERON to rule out old tuberculosis. Elevated proBNP: No history of CHF. EKG consistent with normal sinus rhythm, T wave inversions in V2 to V4, IVCD Patient is euvolemic at present. Echocardiogram done shows an EF 55% with grade 1 diastolic dysfunction without any structural abnormality, mildly dilated aortic ascending aorta to 3.6 cm. Folate levels, procalcitonin, TSH, vitamin B12, lipid panel, iron panel within normal limits. Case management consult: For safe discharge. Patient states he does not have any family around. He has 3 sons who lives with his ex-. Patient has a girlfriend who is not reachable. Patient does give an address where he lives. We will confirm. Once cleared by psychiatry patient is most likely safe to be discharged back to his home. Full code. Regular diet. Lovenox for DVT prophylaxis Attestations Medical Necessity Statement*: Wernicke's encephalopathy, altered mental status, improving hyponatremia Time Spent in Patient Care: Greater than 35 minutes Coding Level of Care Code Acute Injection Press Operator for [facility] Diagnoses Wernickes encephalopathy E51.2 Altered mental status R41.0 Altered mental status type: delirium Hyponatremia E87.1 Troponin level elevated R79.89 Elevated brain natriuretic peptide (BNP) level R79.89
--- NOTE | 2019-12-11 16:58 | PC.NURSE ---
Patient back from MRI. NO increase of redness to pt's back or abd. Pt denied any Hallucinations today. Patient states he is feeling better today. Denies any pain. Patient is pleasant and cooperative today. Patient ambulating to bathroom with standby assist.
--- NOTE | 2019-12-11 19:00 | PC.NURSE ---
Kalma from [facility] here and removed Patient, per stretcher. Iza's left dentures at beside. Family notified.
[2019-12-12] VITALS: BP 168/70; PULSE 73; RESP 17; TEMP 36.9; O2SAT 97
[2019-12-12 04:00] VITALS: BP 162/75; PULSE 69; RESP 18; TEMP 37; O2SAT 96
[2019-12-12 06:16] LABS: Basophils % 0.5 %; Eosinophils # 0.4 10^3/uL (0.0-0.8); Eosinophils % 5.4 %; Hematocrit 33.6 % (42.0-52.0); Hemoglobin 11.1 g/dL (11.7-16.6); Lymphocytes # 1.7 10^3/uL (0.8-4.8); Lymphocytes % 22.3 %; Mean Corpuscular Hemoglobin 30.7 pg (28.0-34.0); Mean Corpuscular Volume 92.8 fL (80-94); Mean Platelet Volume 9.5 fL (7.4-10.4); Monocytes # 0.5 10^3/uL (0.2-0.9); Neutrophils # 4.91 10^3/uL (1.8-7.7); Neutrophils % 64.5 %; Nucleated Red Blood Cells % 0 %; Platelet Count 231 10^3/cmm (130-400); Red Blood Count 3.62 10^6/uL (4.1-5.3); Red Cell Distribution Width 12.7 % (12.1-15.1); White Blood Count 7.6 10^3/uL (4.0-10.0)
[2019-12-12 06:52] LABS: Alanine Aminotransferase 7 U/L (0-41); Albumin Level 3.2 g/dL (3.5-5.2); Alkaline Phosphatase 77 IU/L (40-130); Anion Gap 12.7 (5-19); Aspartate Amino Transferase 9 U/L (0-40); Blood Urea Nitrogen 17 mg/dL (8-23); Calcium 8.1 mg/dL (8.5-10.5); Carbon Dioxide 25 mmol/L (22-29); Chloride 101 mmol/L (98-107); Globulin 2.1 g/dL (1.3-4.6); Glucose 99 mg/dL (65-115); Osmolality Calculated 276 mOsm/kg (285-295); Potassium 3.7 mmol/L (3.5-5.1); Sodium 135 mmol/L (136-145); Total Bilirubin 0.5 mg/dL (0.15-1.2); Total Protein 5.3 g/dL (6.6-8.7)
[2019-12-12 08:00] VITALS: BP 135/71; PULSE 84; RESP 18; TEMP 36.7; O2SAT 95
[2019-12-12] MEDS: thiamine 100 mg Tablet PO (08:50)
[2019-12-12] MEDS: aspirin 81 mg EC Tablet PO (08:51)
[2019-12-12] MEDS: folic acid 1 mg Tablet PO (08:51)
--- NOTE | 2019-12-12 12:46 | PM.PSYCN ---
Providers/Reason for Consult Consulting Physican/Specialty*: Orlando Guadarrama MD Reason for Consult*: Altered mental status Attending Physician: Rudolph Alvares MD Psych Consult HPI History of Present Illness Kate Brown is a 79 year old male who presented to the emergency room with altered mental status and reports laundering his town confused. He was admitted to the [facility] department for definitive treatment of those issues. He has had a complete workup and evaluation for sources of this condition and otherwise is currently reportedly medically clear for discharge. I was asked to evaluate him for possible sources of his perceptual disturbance. Maksim presents today reporting that he has had no history of mental health treatment before in his life. He reports that he also has not had any elicited drug addictions. He does report smoking cigarettes in still smokes a pack and a half to this day. He also reports that there was a time where he drank heavily in a cause some issues but he reports those days are way in the past. He hasn't had a drink in years. He does report that he has been taking opiates for pain and feels like he was taking too many and having some weird perceptual disturbance with that anterior force that he realizes that and discontinued. He astutely suggested that he then started having perceptual disturbances again and he wondered if it wasn't that he was having that from stopping the medication though he never had any experience like that in the past. He denies that these episodes of hallucinations last perceptual disturbances were in any way type II times of the day or in any relation to going to sleep or waking up from sleep. He denies any history of vivid dreams or drains being overly real. He denies any sleep paralysis or other sleep disturbances. He reports that he sleeps fairly well. He denies any ongoing paranoia or other delusional thinking. He denies significant memory disturbance and was able to manage a modified MMSE without any problems. He acknowledges a slight decline in his information processing speed and occasional confusion and places that he has not been before but he denies findings of loss or forgetful in a way that is concerning. Psychiatric history: As above. Substance abuse history: As above. No current issues. Family history: Denies any contributing history of mental health or addiction issues or suicide attempts or completions. Developmental history: He denies any problems with his mom's or delivery of him. He reports to walk and talk about his developmental milestones on time. He denies any speech therapy, learning support, emotional support or special education classes. Psychosocial history: He denies any significant issues in the past regarding his parents, childhood, work history marriages relationship with his children or anything else for that matter. Legal history: He denies any contributory legal history. Meds Current Medications: Current Medications Generic Name Dose Route Start Last Admin Trade Name Emma PRN Reason Stop Dose Admin Aspirin 81 mg 12/11/19 09:00 12/12/19 08:51 Aspirin Ec PO 81 mg DAILY PAM Administration Famotidine 20 mg 12/10/19 12:00 12/12/19 01:10 Pepcid Inj IVP Not Given Q12H PAM Folic Acid 1 mg 12/10/19 18:00 12/12/19 08:51 Folic Acid PO 1 mg BID PAM Administration Thiamine Mononitra te 100 mg 12/10/19 12:00 12/12/19 08:50 Vitamin B-1 PO 100 mg DAILY PAM Administration PFSH NPU PFSH: Medical History (Updated 12/27/19 @ 15:41 by Orlando Guadarrama MD) Arm fracture, left Left femoral shaft fracture Wernickes encephalopathy Surgical History History of open reduction and internal fixation (ORIF) procedure Family History (Updated 12/10/19 @ 05:10 by Dilshad Rogel MD) Other Healthy adult Social History Smoking and tobacco status: current every day smoker Mental Status Exam MSE Comments: This is a slender white male with adequate dressed, grooming and eye contact. No abnormal movements. Cooperative with exam in no acute distress. Speech was normal rate and volume. Mood described as pretty good, affect congruent. Thought process organized. Thought content: Patient denied any suicidal or homicidal ideations, there were no delusions reported or noted, he denied any auditory or visual hallucinations. Attention and concentration were intact and memory appeared reliable but none were formally tested. He is alert and oriented ?3. Insight and judgment appear fair. Vitals/I&O/Wt Last Vital Signs Temp 98.1 F 12/12/19 08:00 Pulse 84 07/18/20 08:00 Resp 18 12/12/19 08:00 BP 135/71 12/12/19 08:00 Pulse Ox 95 12/12/19 08:00 12/11/19 12/12/19 12/12/19 22:59 06:59 14:59 Intake Total 250 / 690 240 / 930 200 / 200 Output Total 400 / 402 150 / 552 Balance -150 / 288 90 / 378 200 / 200 Weight last 48 hrs Weight 70.08 kg Weight 72.121 kg Data NPU Micro: Micro: Microbiology 12/10/19 12:48 Blood Culture - Pr eliminary Blood NEGATIVE TO ALEX E 12/10/19 12:48 Blood Culture - Pr eliminary Blood NEGATIVE TO ALEX E 12/10/19 14:20 MRSA Culture - Fin al Nose Microbiology 12/10/19 12:48 Blood Blood Culture - Preliminary NEGATIVE TO DATE 12/10/19 12:48 Blood Blood Culture - Preliminary NEGATIVE TO DATE 12/10/19 14:20 Nose MRSA Culture - Final A&P Assessment and plan (1) Altered mental status: Status: Acute Qualifiers: Altered mental status type: delirium Qualified Code(s): R41.0 - Disorientation, unspecified (2) Opiate abuse, episodic: Status: Acute Additional A&P Information This is a 79-year-old white male who presented with altered mental status and confusion of unknown etiology who has had a resolution of those symptoms at this time. 1. Continue current medication. 2. Advised patient to discontinue smoking. 3. Likely etiology of hallucinations had something to do with his opiate overuse or discontinuation. No signs of sleep related, alcohol related or psychotic disordered hallucinations present. 4. No credible lethality noted and no need for continued inpatient psychiatric care identified. Attestations NPU Medical Necessity Statement*: N/A. Please see primary team note for medical necessity. But no psychiatric reason for continued stay at this time. 

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
[2019-12-12 16:22] VITALS: BP 135/71; PULSE 84; RESP 18; TEMP 36.7; O2SAT 95
== END 2019-12-12 18:00 | disposition home or self-care (01) | DRG 644 ==
LOC: ER 00:48 → MEDSURG 03:47
PROVIDERS: Admitting Provider Internal Medicine; Emergency Provider Emergency Medicine; Visit Provider Student in an Organized Health Care Education/Training Program
DX: E22.2 Syndrome of inappropriate secretion of antidiuretic hormone (principal); E51.2 Wernicke's encephalopathy; G89.29 Other chronic pain; M54.9 Dorsalgia, unspecified
CPT/HCPCS: 12345; 36415; 70450; 70551; 71045; 71260; 74178; 80053; 80061; 80306; 80307; 81001; 82140; 82436; 82550; 82607; 82746; 83540; 83550; 83605; 83690; 83735; 83880; 84133; 84145; 84295; 84300; 84439; 84443; 84484; 85025; 85610; 86592; 86705; 86706; 86709; 86803; 87040; 87340; 87641; 87806; 93005; 93306; 94640; 96375; 99284; G0378; J3411; J3490; J7030; J7626; J7799; Q9967

== ENCOUNTER → 2019-12-28 16:05 | Outpatient (BNVA) | payer MEDICARE, SELFPAY | PROVIDERS: Visit Provider Family Medicine | DX: N40.0 Benign prostatic hyperplasia without lower urinary tract symptoms (principal); K59.00 Constipation, unspecified; R03.0 Elevated blood-pressure reading, without diagnosis of hypertension | CPT/HCPCS: 81000 ==

== ENCOUNTER 2023-08-14 10:54 | Observation (INO) | payer MEDICARE, SELFPAY ==
[2023-08-14] VITALS (8 sets, daily range): BP systolic 136–184; BP diastolic 62–97; PULSE 62–90; RESP 16; TEMP 36.4–37; O2SAT 95–98; BMI 17.6; BMI 17.2
--- NOTE | 2023-08-14 11:01 | CTR_ITS ---
PROCEDURE INFORMATION: Exam: CT Head Without Contrast Exam date and time: 08/14/2023 11:24 AM Age: 83 years old Clinical indication: Other: Hallucinations TECHNIQUE: Imaging protocol: Computed tomography of the head without contrast. Radiation optimization: All CT scans at this facility use at least one of these dose optimization techniques: automated exposure control; mA and/or kV adjustment per patient size (includes targeted exams where dose is matched to clinical indication); or iterative reconstruction. COMPARISON: MR head wo con* [id number] 12/11/2019 3:12 PM RADIATION DOSE METRICS: Total DLP (mGy-cm): 1085.775 FINDINGS: Brain: Age-appropriate cortical atrophy. Periventricular small-vessel ischemia. Cerebral ventricles: No ventriculomegaly. Paranasal sinuses: Visualized sinuses are unremarkable. No fluid levels. Mastoid air cells: Visualized mastoid air cells are well aerated. Bones/joints: Unremarkable. No acute fracture. Soft tissues: Unremarkable. CT/CT head wo con* [id number] IMPRESSION: No acute intracranial abnormality is appreciated
--- NOTE | 2023-08-14 11:06 | ECG_ITS ---
[facility] Test Date: 2023-08-14 Pat Name: Kate Brown Department: Room: Gender: Male Water Pumper: : 1940 Requested By: Stephan Hanley Order Number: [id number] Fransisco MD: Oskar Mendiola M.D. Measurements Intervals [place] Rate: 79 P: 73 CT: 202 QRS: -2 QRSD: 144 T: 60 QT: 394 QTc: 452 Interpretive Statements SINUS RHYTHM POSSIBLE LEFT ATRIAL ENLARGEMENT [-0.1mV P-WAVE IN V1/V2] INTRAVENTRICULAR CONDUCTION DELAY [130+ ms QRS DURATION] Compared to ECG 12/10/2019 09:24:15 T-wave abnormality no longer present Electronically Signed On 08-14-2023 16:50:12 CDT by Oskar Mendiola M.D. [email or web address]
--- NOTE | 2023-08-14 11:16 | ED.C_ITS ---
HPI - Psych 2 General: Chief Complaint: Psychiatric Symptoms Stated Complaint: Hallucinations Time Seen by Provider: 08/14/23 10:56 Source: patient and EMS Mode of arrival: EMS Limitations: no limitations History of Present Illness: 83-year-old male states over the last we ek he has been having auditory along with visual hallucinations. He states has been seeing writing on the wall and feels like people are out to get him. Denies any headaches denies any fevers denies any suicidality or homicidality. Associated symptoms: Reports auditory hallucinations and visual hallucinations; Deny depression, homicidal ideation or suicidal ideation Review of Systems 2 Const: Denies: fever(s), chills, body aches or change in appetite ENMT: Denies: throat pain or dental pain Card: Denies: chest pain Resp: Denies: dyspnea GI: Denies: abdominal pain, nausea, vomiting or diarrhea : Denies: dysuria Musc: Denies: neck pain or back pain Skin/Breast: Denies: rash Neuro: Denies: headache(s) Psych: Reports: visual hallucinations and auditory hallucinations; Denies: depression, suicidal ideation or homicidal ideation Jose/Lymph: Denies: easy bruising All/Imm: Denies: urticaria PFSH ED 2 PFSH: Medical History (Updated 08/14/23 @ 12:42 by Stephan Hanley MD) Wernickes encephalopathy Left femoral shaft fracture Arm fracture, left Surgical History History of open reduction and internal fixation (ORIF) procedure Family History Other Healthy adult Social History Smoking and tobacco/nicotine status: current every day tobacco/nicotine user cigarettes Packs smoked per day: 1 Alcohol intake: former Former alcohol use details: quit in September 2019 - 6pk daily Substance/Drug Use: never Physical Exam 2 Const: COMMON NORMALS: no acute distress, patient oriented x3 and healthy appearing HENMT: COMMON NORMALS: normocephalic and atraumatic HEAD & SCALP: n ormocephalic and atraumatic Neck/C-Spine: COMMON NORMALS: full ROM and supple Chest: COMMONS NORMALS: normal inspection of the chest and normal palpation of entire chest wall Resp: COMMON NORMALS: normal respiratory effort, No retractions, No use of accessory muscles and clear to auscultation bilaterally AUSCULTATION: clear to auscultation bilaterally Cardio: COMMON NORMALS: regular rate, regular rhythm and No murmurs present (Cardio) RATE: regular rate RHYTHM: regular rhythm GI: COMMON NORMALS: Normal to inspection, nondistended, normoactive bowel sounds present, Soft to palpation, non-tender and no masses PALPATION: Yes Soft to palpation Extremity: COMMON NORMALS: normal to inspection and full ROM Neuro: COMMON NORMALS: patient oriented x3, moves all extremities and no focal motor deficits Psych: COMMON NORMALS: mental status grossly normal, Normal thought process present and cooperative THOUGHT PROCESS: Normal thought process present T HOUGHT CONTENT: Yes Hallucination(s) present Skin: COMMON NORMALS: no rashes or lesions noted and no wounds GENERAL SKIN EXAM: no rashes or lesions noted Course 2 Vital Signs: Vital signs: Vital Signs Temperature 98.6 F 08/14/23 10:58 Pulse Rate 74 08/14/23 11:41 Blood Pressure 180/87 08/14/23 11:41 Pulse Oximetry 98 08/14/23 11:41 Oxygen Delivery Me thod Room Air 08/14/23 11:41 MDM - Psych Medical Decision Making Patient presents with hallucinations he was found to be hyponatremic will admit medically to replace his sodium spoke to psychiatrist who is consulted as well Medical Records I reviewed the patient's medical records. Lab Data 08/14/23 11:16 08/14/23 11:[address] 08/14/23 11:01 IMPRESSION: No acute intracranial abnormality is appreciated Laboratory Results WBC 9.08 10^3/uL (3.29-11.43) 08/14/23 11:16 RBC 4.63 10^6/uL (3.85-5.65) 08/14/23 11:16 Hgb 14.40 g/dL (11.27-16.99) 08/14/23 11:16 Hct 41.6 % (37-53) 08/14/23 11:16 MCV 89.8 fl (82-101) 08/14/23 11:16 MCH 31.1 pg (27-33) 08/14/23 11:16 MCHC 34.6 g/dL (30-55) 08/14/23 11:16 RDW 12.0 % (12.1-15.1) L 08/14/23 11:16 Plt Count 277 10^3/cmm (157-399) 08/14/23 11:16 MPV 9.1 fL (7.4-10.4) 08/14/23 11:16 Neut % (Auto) 71.2 % 08/14/23 11:16 Lymph % (Auto) 19.1 % 08/14/23 11:16 [place] % (Auto) 8.5 % 08/14/23 11:16 Eos % (Auto) 0.7 % 08/14/23 11:16 Baso % (Auto) 0.4 % 08/14/23 11:16 Neut # (Auto) 6.47 10^3/uL (1.8-7.7) 08/14/23 11:16 Lymph # (Auto) 1.7 10^3/uL (0.8-4.8) 08/14/23 11:16 [place] # (Auto) 0.8 10^3/uL (0.2-0.9) 08/14/23 11:16 Eos # (Auto) 0.1 10^3/uL (0.0-0.8) 08/14/23 11:16 Baso # (Auto) 0.0 10^3/uL (0.0-0.1) 08/14/23 11:16 Nucleated RBC % (auto) 0 % 08/14/23 11:16 Nucleated RBCs # 0.0 /100WBC 08/14/23 11:16 Sodium 126 mmol/L (136-145) L 08/14/23 11:16 Potassium 4.0 mmol/L (3.5-5.1) 08/14/23 11:16 Chloride 92 mmol/L (98-107) L 08/14/23 11:16 Carbon Dioxide 25 mmol/L (22-29) 08/14/23 11:16 Anion Gap 13.0 (5-19) 08/14/23 11:16 BUN 13 mg/dL (8-23) 08/14/23 11:16 Creatinine 0.9 mg/dL (0.7-1.2) 08/14/23 11:16 GFR Calculation Not Reportable 08/14/23 11:16 Glucose 121 mg/dL (65-115) H 08/14/23 11:16 Calculated Osmolality 263 mOsm/kg (285-295) L 08/14/23 11:16 Calcium 8.7 mg/dL (8.5-10.5) 08/14/23 11:16 Total Bilirubin 0.8 mg/dL (0.15-1.2) 08/14/23 11:16 AST 19 U/L (0-40) 08/14/23 11:16 ALT 12 U/L (0-41) 08/14/23 11:16 Alkaline Phosphatase 103 U/L (40-130) 08/14/23 11:16 Total Protein 6.9 g/dL (6.6-8.7) 08/14/23 11:16 Albumin 4.2 g/dL (3.5-5.2) 08/14/23 11:16 Globulin 2.7 g/dL (1.3-4.6) 08/14/23 11:16 TSH 1.24 uIU/mL (0.27-4.20) 08/14/23 11:16 Urine Color Yellow (Yellow) 08/14/23 11:49 Urine Appearance Sl hazy (CLEAR) A 08/14/23 11:49 Urine pH 7 (5-7) 08/14/23 11:49 Ur Specific [place] 1.010 (1.005-1.030) 08/14/23 11:49 Urine Protein 1+ (Negative) H 08/14/23 11:49 Urine Glucose (UA) Norm (Normal) 08/14/23 11:49 Urine Ketones 1+ (Negative) H 08/14/23 11:49 Urine Blood 2+ (Negative) H 08/14/23 11:49 Urine Nitrate Negative (Negative) 08/14/23 11:49 Urine Bilirubin Neg (Negative) 08/14/23 11:49 Urine Urobilinogen 4 mg/dL (Negative) H 08/14/23 11:49 Ur Leukocyte Esterase 1+ (Negative) H 08/14/23 11:49 Urine RBC 0-4 /hpf (0-2) H 08/14/23 11:49 Urine WBC 5-10 /hpf (0-5) H 08/14/23 11:49 Ur Squamous Epith Cells None /hpf (0-5) 08/14/23 11:49 Amorphous Sediment Not Reportable 08/14/23 11:49 Urine Bacteria 2+ /hpf (NONE) H 08/14/23 11:49 Salicylates 0.6 mg/dL (3-10) L 08/14/23 11:16 Urine Opiates Screen Negative ng/mL (Negative) 08/14/23 11:49 Acetaminophen < 5.0 ug/mL (10-30) L 08/14/23 11:16 Ur Barbiturates Screen Negative ng/mL (Negative) 08/14/23 11:49 Ur Phencyclidine Scrn Negative ng/mL (Negative) 08/14/23 11:49 Ur Amphetamines Screen Negative ng/mL (Negative) 08/14/23 11:49 U Benzodiazepines Scrn Negative ng/mL (Negative) 08/14/23 11:49 Urine Cocaine Screen Negative ng/mL (Negative) 08/14/23 11:49 U Marijuana (THC) Screen Negative ng/mL (Negative) 08/14/23 11:49 Ethyl Alcohol < 10 mg/dL (0-10) 08/14/23 11:16 Influenza Type A Ag negative (Negative) 08/14/23 11:17 Influenza Type B Ag negative (Negative) 08/14/23 11:17 RSV Antigen Negative (Negative) 08/14/23 11:17 SARS-CoV-2 Ag (Rapid) negative (Negative) 08/14/23 11:17 All radiology interpretation(s) finalized by discharge EKG Data EKG 1: I personally reviewed and interpreted this EKG as follows: EKG interpretation date: 08/14/23 EKG interpretation time: 11:06 Interpretation: nsr hr [address] elevation qrs 144 qtc 428 Discharge Plan Discharge Patient Disposition: Admitted As Inpatient Clinical Impression: Hyponatremia, Hallucination Condition: Stable Prescriptions: No Action acetaminophen [Tylenol Extra Strength] 500 mg Tablet 500 - 1,000 mg PO PRN aspirin 81 mg Tablet,Delayed Release (Dr/Ec) 81 mg PO DAILY Qty: 30 0RF Zyrtec 10 mg Tablet 10 mg PO DAILY lisinopril 20 mg tablet 20 mg PO DAILY baclofen 5 mg tablet 5 mg PO BID Coding Level of Care Code ED Heel Dipper for [facility] Danay
[2023-08-14] MEDS: metoprolol tartrate 50 mg Tablet PO (11:19)
[2023-08-14 11:28] LABS: Basophils % 0.4 %; Eosinophils # 0.1 10^3/uL (0.0-0.8); Eosinophils % 0.7 %; Hematocrit 41.6 % (37-53); Lymphocytes # 1.7 10^3/uL (0.8-4.8); Lymphocytes % 19.1 %; Mean Corpuscular HGB Conc 34.6 g/dL (30-55); Mean Corpuscular Hemoglobin 31.1 pg (27-33); Mean Corpuscular Volume 89.8 fl (82-101); Mean Platelet Volume 9.1 fL (7.4-10.4); Monocytes # 0.8 10^3/uL (0.2-0.9); Monocytes % 8.5 %; Neutrophils # 6.47 10^3/uL (1.8-7.7); Neutrophils % 71.2 %; Nucleated Red Blood Cells % 0 %; Platelet Count 277 10^3/cmm (157-399); Red Blood Count 4.63 10^6/uL (3.85-5.65); White Blood Count 9.08 10^3/uL (3.29-11.43)
[2023-08-14 12:03] LABS: Influenza A by IFA negative (Negative); Influenza B by IFA negative (Negative)
[2023-08-14 12:04] LABS: SARS Covid-2 Antigen negative (Negative)
[2023-08-14 12:05] LABS: Alanine Aminotransferase 12 U/L (0-41); Albumin Level 4.2 g/dL (3.5-5.2); Alkaline Phosphatase 103 U/L (40-130); Aspartate Amino Transferase 19 U/L (0-40); Blood Urea Nitrogen 13 mg/dL (8-23); Calcium 8.7 mg/dL (8.5-10.5); Carbon Dioxide 25 mmol/L (22-29); Chloride 92 mmol/L (98-107); Creatinine Clr Calc Pharmacy 52.7791; Globulin 2.7 g/dL (1.3-4.6); Glucose 121 mg/dL (65-115); Osmolality Calculated 263 mOsm/kg (285-295); Salicylate 0.6 mg/dL (3-10); Sodium 126 mmol/L (136-145); Thyroid Stimulating Hormone 1.24 uIU/mL (0.27-4.20); Total Bilirubin 0.8 mg/dL (0.15-1.2); Total Protein 6.9 g/dL (6.6-8.7)
[2023-08-14 12:05] LABS: Add Urine Microscopic? YES; Amphetamines Screen Urine Negative (Negative); Barbiturates Screen Urine Negative (Negative); Benzodiazepines Screen Urine Negative (Negative); Bilirubin Urine Neg (Negative); Blood Urine 2+ (Negative); Cocaine Screen Urine Negative (Negative); Glucose Urine UA Norm (Normal); Ketones Urine 1+ (Negative); Leukocyte Esterase Urine 1+ (Negative); Nitrate Urine Negative (Negative); Opiate Screen Urine Negative (Negative); PCP Screen Urine Negative (Negative); Protein Urine 1+ (Negative); RBC Urine 0-4 /hpf (0-2); THC Screen Urine Negative (Negative); Urine Appearance SL Hazy (CLEAR); Urine Color Yellow (Yellow); pH Urine 7 (5-7)
[2023-08-14 12:06] LABS: Add Urine Culture? Yes; Bacteria Urine 2+ /hpf; Urobilinogen Urine 4 mg/dL (Negative)
[2023-08-14 12:08] LABS: Acetaminophen < 5.0 ug/mL (10-30); Alcohol Level < 10 mg/dL (0-10)
[2023-08-14] MEDS: sodium chloride 0.9% 1,000 ML 999 ML IV (12:17)
[2023-08-14 12:26] LABS: RSV Transfer Patient (ED) Negative (Negative)
[2023-08-14] MEDS: hyDRALAzine 20 mg/mL INJ 1 mL 10 MG IVP (14:48)
--- NOTE | 2023-08-14 15:18 | PC.NURSE ---
attempted to call report at [phone]
--- NOTE | 2023-08-14 17:25 | P.HP_ITS ---
Providers/Chief Complaint 2 Admitting Physician: Opal Burch MD Chief Complaint: Hallucinations History of Present Illness Kate Brown is a 83 year old male with a past medical history of Warnicke's encephalopathy, history of 3 years ago. He presents to the hospital today complaining of hallucinations. He states for the past 1 week he has been hearing voices that they will hurt him. Heart himself. He is also suffering from visual hallucinations. He sees objects that are not there such as on socks socks on the board in front of him. He has not had any hallucinations in the past 3 years until recently. Recent stressor by way of break-up with his girlfriend with whom he is still currently living as they share a home. He states that his girlfriend's new boyfriend and him about a week ago and that has been putting him under some great stress. Denies any alcohol use or drug consumption. Denies any dysuria though UA is noted to be positive for leukocyte esterase and WBCs. Review of Systems 2 General: Reports: 10 or more systems reviewed and unremarkable except in HPI and below Const: Denies: fever(s), chills or body aches Eyes: Denies: change in vision, blurry vision or photophobia ENMT: Reports: hoarseness; Denies: throat pain, enlarged tonsils, odynophagia or nasal congestion Card: Denies: chest pain, palpitations, irregular heart rhythm, edema, swelling of feet/ankles, lightheadedness, pre-syncope, dyspnea on exertion or orthopnea Resp: Denies: dyspnea, productive cough, non-productive cough, wheezing, stridor, pain on inspiration, change in phlegm color, hemoptysis or chest congestion GI: Denies: abdominal pain, nausea, vomiting, hematemesis, coffee ground emesis, dysphagia, heartburn, diarrhea, constipation, GI cramping, change in stool character, hematochezia or melena : Denies: flank pain, dysuria, urinary frequency, urinary urgency, urinary hesitancy or hematuria Musc: Denies: neck pain, back pain, extremity pain, joint swelling, joint warmth or deformity Neuro: Denies: headache(s), numbness in extremities, weakness in extremities, sensory changes, difficulty walking, frequent falls, dizziness, vertigo, behavioral changes, Slurred speech present or seizure-like activity Psych: Denies: anxiety, depression, suicidal ideation or homicidal ideation Endo: Denies: polyuria, polydipsia, tired all the time, cold intolerance or hot flashes Jose/Lymph: Denies: easy bruising or easy bleeding Medications/Allergies Home Medications Medication Instructions Recorded Confirmed Last Taken Type acetaminophen 500 mg tablet 500 - 1,000 mg PO PRN 09/28/19 08/14/23 Unknown History (Tylenol Extra Strength) aspirin 81 mg tablet,delayed 81 mg PO DAILY #30 tabs 12/12/19 08/14/23 Unknown Rx release baclofen 5 mg tablet 5 mg PO BID 08/14/23 08/14/23 Unknown History cetirizine 10 mg tablet (Zyrtec) 10 mg PO DAILY 08/14/23 08/14/23 Unknown History lisinopril 20 mg tablet 20 mg PO DAILY 08/14/23 08/14/23 Unknown History Allergies Allergy/AdvReac Type Severity Reaction Status Date / Time procaine [From Novocain] Allergy Unconscious Verified 08/14/23 11:04 PFSH Acute 2 PFSH: Medical History (Updated 08/15/23 @ 16:19 by Opla Burch MD) Wernickes encephalopathy Left femoral shaft fracture Arm fracture, left Surgical History History of open reduction and internal fixation (ORIF) procedure Family History Other Healthy adult Social History Smoking and tobacco/nicotine status: current every day tobacco/nicotine user cigarettes Packs smoked per day: 1 Alcohol intake: former Former alcohol use details: quit in September 2019 - daily Substance/Drug Use: never Vitals/I&O/Wt Last Vital Signs Temp 98.6 F 08/14/23 10:58 Pulse 68 08/14/23 16:24 BP 145/93 08/14/23 16:24 Pulse Ox 98 08/14/23 16:24 O2 Del Method Room Air 08/14/23 16:29 08/14/23 08/14/23 08/14/23 06:59 14:59 22:59 Intake Total 1000 / 1000 Balance 1000 / 1000 Weight last 48 hrs Weight 57.72 kg Weight 58.967 kg Physical Exam 2 Narrative: General: No acute distress, AO x3 HEENT: PERRLA, pupils bilaterally equal and reactive, pallors not present Chest: Normal vesicular breath sounds, no added sounds, equal good air entry bilaterally CVS: S1-S2 regular, no murmurs, no tachycardia, no gallops, no rubs Abdomen: Soft, nontender, no organomegaly, bowel sounds present Neuro: No focal deficits, no facial deformity, AO x3, power 5/5 in all limbs Data 08/14/23 11:16 08/15/23 13:31 A&P Assessment and plan (1) Hallucination: Auditory and visual hallucinations as described above. Patient had episode of hallucination 3 years ago, however states that he did not have any hallucinations for the past 3 years until about a week ago. May be related to recent stressors. Consult psychiatry. Alternately may be related to acute illness, possibly UTI given a positive UA. (2) Unspecified psychosis: (3) Hyponatremia: In the past diagnosed with SIADH. Trial of normal saline 75 cc an hour Recheck sodium with a.m. labs. Sodium at 126, unlikely to be the cause of his current hallucinations. (4) UTI (urinary tract infection): Urine analysis showing bacteriuria. Empiric ceftriaxone 1 g IV every 24 hours Check urine culture. Attestations 2 Medical Necessity Statement*: Less than 2 midnight stay is anticipated at this time. Coding Level of Care Code Acute Code for [facility] Diagnoses Hallucination R44.3 Unspecified psychosis F29 Hyponatremia E87.1 UTI (urinary tract infection) N39.0
[2023-08-14] MEDS: cefTRIAXone 1,000 MG in sodium chloride 0.9% (plus) 50 ML 100 MG IV (18:06)
[2023-08-14] MEDS: sodium chloride 0.9% 1,000 ML 75 ML IV (18:07)
[2023-08-14 18:53] LABS: Ammonia 22 umol/L (16-60)
[2023-08-14 22:01] LABS: Potassium, Radom Urine 32 mmol/L; Urine Random Chloride 85 mmol/L; Urine Random Sodium 109 mmol/L
[2023-08-15] VITALS (8 sets, daily range): BP systolic 147–186; BP diastolic 68–84; PULSE 65–80; RESP 16–18; TEMP 36.5–37.1; O2SAT 92–97
[2023-08-15] MEDS: sodium chloride 0.9% 1,000 ML 75 ML IV (07:36)
--- NOTE | 2023-08-15 07:38 | P.NPUCON_ITS ---
Providers/Reason for Consult 2 Consulting Physican/Specialty*: Boby Hadley MD/Psychiatry Reason for Consult*: hallucinations Attending Physician: Opal Burch MD Psych Consult HPI History of Present Illness Kate Brown is a 83 year old male who was admitted with complaints of auditory and visual hallucinations that he states has been going on for the last week. The patient was seen on the [facility] unit for interview today. He acknowledges that over the last week he had been hearing and seeing unusual things and people that were not there while feeling paranoid. Patient on interview today states that he has been receiving medications for treating his urinary tract infection and states that he is feeling better and no longer having any hallucinations. He denied any depressed mood. He denied any problems with anxiety. Previous records were reviewed from a similar consult with the patient having altered mental status in 2019 which the patient had apparently remembered and he had reported having perceptual disturbances at that time that were likely short-lived without any significant consequence long-term. 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 Social history: He denied any history regarding his parents, childhood, work history, marriages or relationships that would be pertinent to his current state. He reported no history of learning problems. He had denied any history of sexual physical or emotional abuse. Allergies: No known drug allergies Meds Home Medications and Allergies Home Medications Medication Instructions Recorded Confirmed Last Taken Type acetaminophen 500 mg tablet 500 - 1,000 mg PO PRN 09/28/19 08/14/23 Unknown History (Tylenol Extra Strength) aspirin 81 mg tablet,delayed 81 mg PO DAILY #30 tabs 12/12/19 08/14/23 Unknown Rx release baclofen 5 mg tablet 5 mg PO BID 08/14/23 08/14/23 Unknown History cetirizine 10 mg tablet (Zyrtec) 10 mg PO DAILY 08/14/23 08/14/23 Unknown History lisinopril 20 mg tablet 20 mg PO DAILY 08/14/23 08/14/23 Unknown History Allergies Allergy/AdvReac Type Severity Reaction Status Date / Time procaine [From Novocain] Allergy Unconscious Verified 08/14/23 11:04 Current Medications Current Medications Generic Name Dose Route Start Last Admin Trade Name Freq PRN Reason Stop Dose Admin Sodium Chloride 1,000 mls @ 75 mls/hr 08/14/23 17:30 08/15/23 07:36 Sodium Chloride 0.9% IV 75 mls/hr .[id number] PAM Administration Ceftriaxone Sodium 1,000 mg/ 50 mls @ 100 mls/hr 08/14/23 17:30 08/14/23 18:49 Sodium Chloride IV Infused Q24H PAM Infusion Protocol PFS NPU 2 PFS: Medical History (Updated 08/15/23 @ 16:05 by Boby Hadley MD) Wernickes encephalopathy Left femoral shaft fracture Arm fracture, left Surgical History History of open reduction and internal fixation (ORIF) procedure Family History Other Healthy adult Social History Smoking and tobacco/nicotine status: current every day tobacco/nicotine user cigarettes Packs smoked per day: 1 Alcohol intake: former Former alcohol use details: quit in September 2019 - 6pk daily Substance/Drug Use: never Mental Status Exam 2 MSE Comments: casually dressed pleasant male who appeared his stated age with fair eye contact. There was no evidence of any abnormal involuntary motor movements tics or tremors. He was friendly and cooperative on interview. He described his mood as better. His affect was brighter. His thought process linear logical and goal-directed. His thought content showed no evidence of active homicidal or suicidal ideation. He did not appear to be responding internal stimuli. There is no clear evidence of any delusional thinking or paranoia. He was alert and oriented to person place and situation. Patient thought the date was August 19, 2023. He did recognize a day of the week. Past presidents x 2 recalled. Speech was normal regards to rate rhythm and prosody. His insight appeared fair. His judgment appeared fair. His impulse control appeared adequate. Vitals/I&O/Wt Last Vital Signs Temp 97.7 F 08/15/23 04:00 Pulse 73 08/15/23 07:35 Resp 18 08/15/23 07:35 BP 186/79 08/15/23 07:35 Pulse Ox 92 08/15/23 07:35 O2 Del Method Room Air 08/15/23 07:35 08/14/23 08/15/23 08/15/23 22:59 06:59 14:59 Intake Total 410 / 1410 100 / 1510 1000 / 1000 Output Total 100 / 100 Balance 310 / 1310 100 / 1410 1000 / 1000 Weight last 48 hrs Weight 58.967 kg Weight 57.72 kg Weight 58.967 kg Data NPU 08/14/23 11:16 08/15/23 13:31 A&P Assessment and plan (1) Unspecified psychosis: (2) Hallucination: Plan 83-year-old male who had apparently presented with confusion and hallucinations but appears to have had some resolution of those symptoms at this time. Continue medical treatment as prescribed. There does not appear to be any credible lethality that would require any continued inpatient psychiatric care. Please consult if needed again regarding this case. Attestations NPU 2 Medical Necessity Statement*: N/A Coding Level of Care Code Acute Code for Chg Fwd Diagnoses Unspecified psychosis F29 Hallucination R44.3
[2023-08-15] MEDS: thiamine 100 mg Tablet PO (08:42)
[2023-08-15] MEDS: tamsulosin 0.4 mg Capsule 0.400000000000000022 MG PO (08:42)
[2023-08-15] MEDS: lisinopril 20 mg Tablet PO (08:42)
[2023-08-15] MEDS: aspirin 81 mg EC Tablet PO (08:42)
[2023-08-15 14:09] LABS: Alanine Aminotransferase 9 U/L (0-41); Albumin Level 3.3 g/dL (3.5-5.2); Alkaline Phosphatase 76 U/L (40-130); Anion Gap 12.9 (5-19); Aspartate Amino Transferase 13 U/L (0-40); Blood Urea Nitrogen 18 mg/dL (8-23); Calcium 7.8 mg/dL (8.5-10.5); Carbon Dioxide 22 mmol/L (22-29); Chloride 99 mmol/L (98-107); Creatinine Clr Calc Pharmacy 47.5012; Globulin 1.9 g/dL (1.3-4.6); Glucose 139 mg/dL (65-115); Osmolality Calculated 274 mOsm/kg (285-295); Potassium 3.9 mmol/L (3.5-5.1); Sodium 130 mmol/L (136-145); Total Bilirubin 0.5 mg/dL (0.15-1.2); Total Protein 5.2 g/dL (6.6-8.7)
--- NOTE | 2023-08-15 16:21 | P.PN_ITS ---
Subjective 2 Subjective: Hallucinations or improving today. Patient was evaluated by psychiatry, appreciate recommendations. Urine culture showing gram-negative rods pending final identification. No fever. Sodium improved at 130. Medications: Reviewed: Yes Vitals/I&O/Wt Last Vital Signs Temp 98.0 F 08/15/23 15:14 Pulse 75 08/15/23 15:14 Resp 16 08/15/23 15:14 BP 166/77 08/15/23 15:14 Pulse Ox 97 08/15/23 15:14 O2 Del Method Room Air 08/15/23 15:14 08/15/23 08/15/23 08/15/23 06:59 14:59 22:59 Intake Total 100 / 1510 1480 / 1480 Balance 100 / 1410 1480 / 1480 Weight last 48 hrs Weight 58.967 kg Weight 57.72 kg Weight 58.967 kg Physical Exam 2 Narrative: General: No acute distress, AO x3 HEENT: PERRLA, pupils bilaterally equal and reactive, pallors not present Chest: Normal vesicular breath sounds, no added sounds, equal good air entry bilaterally CVS: S1-S2 regular, no murmurs, no tachycardia, no gallops, no rubs Abdomen: Soft, nontender, no organomegaly, bowel sounds present Neuro: No focal deficits, no facial deformity, AO x3, power 5/5 in all limbs Data 08/14/23 11:16 08/15/23 13:31 Micro: Microbiology 08/14/23 11:49 Urine Culture - Preliminary Urine,Clean Catch Gram Negative Rods A&P Assessment and plan (1) Hallucination: Auditory and visual hallucinations as described above. Patient had episode of hallucination 3 years ago, however states that he did not have any hallucinations for the past 3 years until about a week ago. May be related to recent stressors. Consult psychiatry. Alternately may be related to acute illness, possibly UTI given a positive UA. (2) Unspecified psychosis: (3) Hyponatremia: In the past diagnosed with SIADH. Trial of normal saline 75 cc an hour Recheck sodium with a.m. labs. Sodium at 126, unlikely to be the cause of his current hallucinations. (4) UTI (urinary tract infection): Urine analysis showing bacteriuria. Empiric ceftriaxone 1 g IV every 24 hours Check urine culture. Plan Plan for today August 15, 2023. Gram-negative rods on urine culture awaiting final identification to direct further antibiotic therapy. Anticipate discharge in the upcoming 24 hours. Discontinue IV fluids. Recheck sodium with a.m. labs. Attestations 2 Medical Necessity Statement*: d/c IVF, montior na, await urine cx Coding Level of Care Code Acute Code for Chg Fwd Diagnoses Hallucination R44.3 Unspecified psychosis F29 Hyponatremia E87.1 UTI (urinary tract infection) N39.0
[2023-08-15] MEDS: cefTRIAXone 1,000 MG in sodium chloride 0.9% (plus) 50 ML 100 MG IV (17:31)
[2023-08-16 04:00] VITALS: BP 167/78; PULSE 71; RESP 17; TEMP 36.8; O2SAT 93
[2023-08-16 06:00] VITALS: PULSE 60
[2023-08-16 06:06] LABS: Alanine Aminotransferase 10 U/L (0-41); Albumin Level 3.3 g/dL (3.5-5.2); Alkaline Phosphatase 74 U/L (40-130); Anion Gap 12.8 (5-19); Aspartate Amino Transferase 11 U/L (0-40); Blood Urea Nitrogen 18 mg/dL (8-23); Carbon Dioxide 21 mmol/L (22-29); Chloride 102 mmol/L (98-107); Globulin 2.1 g/dL (1.3-4.6); Glucose 87 mg/dL (65-115); Osmolality Calculated 275 mOsm/kg (285-295); Potassium 3.8 mmol/L (3.5-5.1); Sodium 132 mmol/L (136-145); Total Bilirubin 0.6 mg/dL (0.15-1.2); Total Protein 5.4 g/dL (6.6-8.7)
[2023-08-16 08:00] VITALS: BP 183/86; PULSE 104; RESP 16; TEMP 36.7; O2SAT 94
[2023-08-16] MEDS: tamsulosin 0.4 mg Capsule 0.400000000000000022 MG PO (09:28)
[2023-08-16] MEDS: lisinopril 20 mg Tablet 40 MG PO (09:28)
[2023-08-16] MEDS: thiamine 100 mg Tablet PO (09:28)
[2023-08-16] MEDS: aspirin 81 mg EC Tablet PO (09:28)
[2023-08-16 13:15] LABS: Osmolality Serum 266 mOsm/kg (278-305)
--- NOTE | 2023-08-16 17:29 | PM.DCS ---
Discharge Providers Date of Admission: 08/14/23 17:22 Date of Discharge: August 16, 2023 Attending Provider at Admission: Opal Burch MD Attending Provider at Discharge: Opal Burch MD Diagnoses at Discharge Discharge Diagnosis (1) Hallucination: Status: Acute (2) Unspecified psychosis: Status: Acute (3) Hyponatremia: Status: Acute Permanent problem details: Most likely SIADH (4) UTI (urinary tract infection): Status: Acute Reason for Visit Reason for Visit: Hallucinations Brief History: Kate Brown is a 83 year old male with a past medical history of Warnicke's encephalopathy, history of 3 years ago. He presents to the hospital complaining of hallucinations. He states for the past 1 week he has been hearing voices that they will hurt him. He is also suffering from visual hallucinations. He sees objects that are not there. He has not had any hallucinations in the past 3 years until recently. Recent stressor by way of break-up with his girlfriend with whom he is still currently living as they share a home. Denies any alcohol use or drug consumption. Denies any dysuria though UA is noted to be positive for leukocyte esterase and WBCs. Urine culture preliminarily showed gram-negative rods, pending final identification at the time of discharge. He has been transitioned to levofloxacin empirically which she can continue at home. His hallucinations resolved within about 24 hours of admission. He was evaluated by psychiatry and no further antipsychotic medications were needed at this time. He was also found to have hyponatremia with a sodium of 126. This improved with IV hydration to 132 at the time of discharge. Highly unlikely that hyponatremia was related to his current symptoms. He was noted to be hypertensive and spite of his usual dose of lisinopril 20 mg daily, dose was increased to 40 mg daily. He is instructed to follow-up with his primary care provider to assess for need for any further titration of this dosing. Physical Exam Narrative: General: No acute distress, AO x3 HEENT: PERRLA, pupils bilaterally equal and reactive, pallors not present Chest: Normal vesicular breath sounds, no added sounds, equal good air entry bilaterally CVS: S1-S2 regular, no murmurs, no tachycardia, no gallops, no rubs Abdomen: Soft, nontender, no organomegaly, bowel sounds present Neuro: No focal deficits, no facial deformity, AO x3, power 5/5 in all limbs Discharge Data Studies Completed and Pending Completed Studies During Hospitalization Category Date Time Status CT head wo con* [id number] Stat Cat Scan 08/14/23 11:01 Completed Pending at discharge Category Date Time Status Urine Culture Stat Lab 08/14/23 11:49 Results Radiology Impressions Head CT 08/14/23 11:01 IMPRESSION: No acute intracranial abnormality is appreciated Laboratory Results WBC 9.08 10^3/uL (3.29-11.43) 08/14/23 11:16 RBC 4.63 10^6/uL (3.85-5.65) 08/14/23 11:16 Hgb 14.40 g/dL (11.27-16.99) 08/14/23 11:16 Hct 41.6 % (37-53) 08/14/23 11:16 MCV 89.8 fl (82-101) 08/14/23 11:16 MCH 31.1 pg (27-33) 08/14/23 11:16 MCHC 34.6 g/dL (30-55) 08/14/23 11:16 RDW 12.0 % (12.1-15.1) L 08/14/23 11:16 Plt Count 277 10^3/cmm (157-399) 08/14/23 11:16 MPV 9.1 fL (7.4-10.4) 08/14/23 11:16 Neut % (Auto) 71.2 % 08/14/23 11:16 Lymph % (Auto) 19.1 % 08/14/23 11:16 [place] % (Auto) 8.5 % 08/14/23 11:16 Eos % (Auto) 0.7 % 08/14/23 11:16 Baso % (Auto) 0.4 % 08/14/23 11:16 Neut # (Auto) 6.47 10^3/uL (1.8-7.7) 08/14/23 11:16 Lymph # (Auto) 1.7 10^3/uL (0.8-4.8) 08/14/23 11:16 [place] # (Auto) 0.8 10^3/uL (0.2-0.9) 08/14/23 11:16 Eos # (Auto) 0.1 10^3/uL (0.0-0.8) 08/14/23 11:16 Baso # (Auto) 0.0 10^3/uL (0.0-0.1) 08/14/23 11:16 Nucleated RBC % (auto) 0 % 08/14/23 11:16 Nucleated RBCs # 0.0 /100WBC 08/14/23 11:16 Sodium 132 mmol/L (136-145) L 08/16/23 05:11 Potassium 3.8 mmol/L (3.5-5.1) 08/16/23 05:11 Chloride 102 mmol/L (98-107) 08/16/23 05:11 Carbon Dioxide 21 mmol/L (22-29) L 08/16/23 05:11 Anion Gap 12.8 (5-19) 08/16/23 05:11 BUN 18 mg/dL (8-23) 08/16/23 05:11 Creatinine 1.0 mg/dL (0.7-1.2) 08/16/23 05:11 GFR Calculation Not Reportable 08/16/23 05:11 Glucose 87 mg/dL (65-115) 08/16/23 05:11 Serum Osmolality 266 mOsm/kg (278-305) L 08/14/23 18:22 Calculated Osmolality 275 mOsm/kg (285-295) L 08/16/23 05:11 Calcium 8.0 mg/dL (8.5-10.5) L 08/16/23 05:11 Total Bilirubin 0.6 mg/dL (0.15-1.2) 08/16/23 05:11 AST 11 U/L (0-40) 08/16/23 05:11 ALT 10 U/L (0-41) 08/16/23 05:11 Alkaline Phosphatase 74 U/L (40-130) 08/16/23 05:11 Ammonia 22 umol/L (16-60) 08/14/23 18:22 Total Protein 5.4 g/dL (6.6-8.7) L 08/16/23 05:11 Albumin 3.3 g/dL (3.5-5.2) L 08/16/23 05:11 Globulin 2.1 g/dL (1.3-4.6) 08/16/23 05:11 TSH 1.24 uIU/mL (0.27-4.20) 08/14/23 11:16 Urine Color Yellow (Yellow) 08/14/23 11:49 Urine Appearance Sl hazy (CLEAR) A 08/14/23 11:49 Urine pH 7 (5-7) 08/14/23 11:49 Ur Specific [place] 1.010 (1.005-1.030) 08/14/23 11:49 Urine Protein 1+ (Negative) H 08/14/23 11:49 Urine Glucose (UA) Norm (Normal) 08/14/23 11:49 Urine Ketones 1+ (Negative) H 08/14/23 11:49 Urine Blood 2+ (Negative) H 08/14/23 11:49 Urine Nitrate Negative (Negative) 08/14/23 11:49 Urine Bilirubin Neg (Negative) 08/14/23 11:49 Urine Urobilinogen 4 mg/dL (Negative) H 08/14/23 11:49 Ur Leukocyte Esterase 1+ (Negative) H 08/14/23 11:49 Urine RBC 0-4 /hpf (0-2) H 08/14/23 11:49 Urine WBC 5-10 /hpf (0-5) H 08/14/23 11:49 Ur Squamous Epith Cells None /hpf (0-5) 08/14/23 11:49 Amorphous Sediment Not Reportable 08/14/23 11:49 Urine Bacteria 2+ /hpf (NONE) H 08/14/23 11:49 Ur Random Sodium 109 mmol/L 08/14/23 21:40 Ur Random Potassium 32 mmol/L 08/14/23 21:40 Ur Random Chloride 85 mmol/L 08/14/23 21:40 Salicylates 0.6 mg/dL (3-10) L 08/14/23 11:16 Urine Opiates Screen Negative ng/mL (Negative) 08/14/23 11:49 Acetaminophen < 5.0 ug/mL (10-30) L 08/14/23 11:16 Ur Barbiturates Screen Negative ng/mL (Negative) 08/14/23 11:49 Ur Phencyclidine Scrn Negative ng/mL (Negative) 08/14/23 11:49 Ur Amphetamines Screen Negative ng/mL (Negative) 08/14/23 11:49 U Benzodiazepines Scrn Negative ng/mL (Negative) 08/14/23 11:49 Urine Cocaine Screen Negative ng/mL (Negative) 08/14/23 11:49 U Marijuana (THC) Screen Negative ng/mL (Negative) 08/14/23 11:49 Ethyl Alcohol < 10 mg/dL (0-10) 08/14/23 11:16 Influenza Type A Ag negative (Negative) 08/14/23 11:17 Influenza Type B Ag negative (Negative) 08/14/23 11:17 RSV Antigen Negative (Negative) 08/14/23 11:17 SARS-CoV-2 Ag (Rapid) negative (Negative) 08/14/23 11:17 Vitals Last Vital Signs Temp 98.1 F 08/16/23 08:00 Pulse 104 H 08/16/23 08:00 Resp 16 08/16/23 08:00 BP 183/86 08/16/23 08:00 Pulse Ox 94 08/16/23 08:00 O2 Del Method Room Air 08/16/23 08:00 Discharge Plan Discharge Patient Disposition: Home Condition: Stable Prescriptions: New levofloxacin 500 mg tablet 500 mg PO DAILY 5 Days Qty: 5 0RF Continued acetaminophen [Tylenol Extra Strength] 500 mg Tablet 500 - 1,000 mg PO PRN aspirin 81 mg Tablet,Delayed Release (Dr/Ec) 81 mg PO DAILY Qty: 30 0RF Zyrtec 10 mg Tablet 10 mg PO DAILY baclofen 5 mg tablet 5 mg PO BID Changed lisinopril 20 mg tablet 40 mg PO DAILY 30 Days Qty: 30 0RF Discharge Orders: Discharge Order (Routine); Ordered 08/16/23 Ordered By: Opal Burch Referrals: Funmi Guadarrama FNP [Referring] - 08/19/23 10:20 am (appointment will be with PAPITO Astorga ) Discharge Diet: Usual diet Discharge Activity: Resume usual activity Patient Instructions: Levofloxacin (By mouth), Urinary Tract Infection in Men (DC), Hyponatremia (DC) Discharge Attestations Time Spent in Discharge Care*: greater than 30 min Status at Discharge: Cognitive status at discharge: cognitively intact, Behavioral status at discharge: cooperative, Quality Metrics Clinical Quality Measures [ No reported AMI, CVA or VTE this stay] Coding Level of Care Code Acute Code for Chg Fwd Diagnoses Hallucination R44.3 Unspecified psychosis F29 Hyponatremia E87.1 UTI (urinary tract infection) N39.0
== END 2023-08-16 12:33 | disposition home or self-care (01) ==
LOC: ER 12:42 → MEDSURG 18:47
PROVIDERS: Admitting Provider Student in an Organized Health Care Education/Training Program; Emergency Provider Emergency Medicine; Visit Provider Student in an Organized Health Care Education/Training Program
DX: R44.3 Hallucinations, unspecified (principal); E87.1 Hypo-osmolality and hyponatremia; N39.0 Urinary tract infection, site not specified; F17.210 Nicotine dependence, cigarettes, uncomplicated
CPT/HCPCS: 36415; 70450; 80053; 80306; 80307; 81001; 82140; 82436; 83930; 84133; 84300; 84443; 85025; 87086; 87426; 87804; 87899; 93005; 96374; 96375; 99285; G0378; J0360; J0696; J7030

== ENCOUNTER 2024-06-08 17:10 | Emergency (ER) | payer MEDICARE, SELFPAY ==
[2024-06-08 17:17] VITALS: BP 129/76; PULSE 96; TEMP 36.5; O2SAT 96; BMI 17.6
[2024-06-08 19:22] VITALS: BP 104/56; PULSE 65; O2SAT 93
[2024-06-08 19:24] LABS: Basophils # 0.1 10^3/uL (0.0-0.1); Basophils % 0.7 %; Eosinophils # 0.2 10^3/uL (0.0-0.8); Eosinophils % 1.8 %; Hematocrit 43.8 % (37-53); Lymphocytes # 1.7 10^3/uL (0.8-4.8); Mean Corpuscular Hemoglobin 31.8 pg (27-33); Mean Corpuscular Volume 93.6 fl (82-101); Mean Platelet Volume 9.4 fL (7.4-10.4); Monocytes # 0.8 10^3/uL (0.2-0.9); Monocytes % 9.1 %; Neutrophils # 5.64 10^3/uL (1.8-7.7); Neutrophils % 68.2 %; Nucleated Red Blood Cells % 0 %; Platelet Count 256 10^3/cmm (157-399); Red Blood Count 4.68 10^6/uL (3.85-5.65); Red Cell Distribution Width 12.9 % (12.1-15.1); White Blood Count 8.27 10^3/uL (3.29-11.43)
[2024-06-08 19:32] LABS: Alanine Aminotransferase 14 U/L (0-41); Albumin Level 4.4 g/dL (3.5-5.2); Alkaline Phosphatase 78 U/L (40-130); Anion Gap 12.7 (5-19); Aspartate Amino Transferase 21 U/L (0-40); Blood Urea Nitrogen 26 mg/dL (8-23); Calcium 9.5 mg/dL (8.5-10.5); Carbon Dioxide 28 mmol/L (22-29); Chloride 96 mmol/L (98-107); Creatinine Clr Calc Pharmacy 42.4384; Globulin 2.3 g/dL (1.3-4.6); Glucose 105 mg/dL (65-115); Lipase 37 U/L (13-60); Osmolality Calculated 279 mOsm/kg (285-295); Potassium 4.7 mmol/L (3.5-5.1); Sodium 132 mmol/L (136-145); Total Bilirubin 0.7 mg/dL (0.15-1.2); Total Protein 6.7 g/dL (6.6-8.7)
[2024-06-08 19:34] LABS: Bilirubin Urine Negative (Negative); Blood Urine Negative (Negative); Glucose Urine UA Negative (Normal); Ketones Urine Trace (Negative); Leukocyte Esterase Urine 1+ (Negative); Nitrate Urine Negative (Negative); Protein Urine Trace (Negative); Specific Gravity, Urine 1.022 (1.005-1.030); Urine Appearance Clear (CLEAR); Urine Color Yellow (Yellow); pH Urine 6.5 (5-7)
[2024-06-08 19:40] LABS: Add Urine Microscopic? YES; Bacteria Urine None Seen /hpf; Hyaline Casts Urine 1.21 /lpf; RBC Urine 0-2 /hpf (0-2); Squamous Epithelial Cell Urine 0-5 /hpf (0-5); WBC Urine 0-5 /hpf (0-5)
--- NOTE | 2024-06-08 20:37 | ECG_ITS ---
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 Measurements Intervals Levan Rate: 89 P: 78 NC: 190 QRS: 12 QRSD: 135 T: 202 QT: 374 QTc: 455 Interpretive Statements SINUS RHYTHM WITH OCCASIONAL SUPRAVENTRICULAR PREMATURE COMPLEXES INTRAVENTRICULAR CONDUCTION DELAY [130+ ms QRS DURATION] LEFT VENTRICULAR HYPERTROPHY AND ST-T CHANGE [VOLTAGE CRITERIA PLUS ST/T ABNORMALITY] POSSIBLE SEPTAL MYOCARDIAL INFARCTION , OF INDETERMINATE AGE [30 ms Q WAVE IN V1/V2] Compared to ECG 08/14/2023 11:06:13 Left ventricular hypertrophy now present ST (T wave) deviation now present Myocardial infarct finding now present Electronically Signed On 06-09-2024 23:58:50 [employer]ING GOODS SALESPERSON by Dedrick Mcgarry M.D. [email or web address]
--- NOTE | 2024-06-08 20:37 | CTR_ITS ---
PROCEDURE INFORMATION: Exam: CT Head Without Contrast Exam date and time: 06/08/2024 8:53 PM Age: 84 years old Clinical indication: Altered mental status/memory loss; Confusion or disorientation; Additional info: AMS TECHNIQUE: Imaging protocol: Computed tomography of the head without contrast. Radiation optimization: All CT scans at this facility use at least one of these dose optimization techniques: automated exposure control; mA and/or kV adjustment per patient size (includes targeted exams where dose is matched to clinical indication); or iterative reconstruction. COMPARISON: CT head wo con* [id number] 08/14/2023 11:24 AM RADIATION DOSE METRICS: Total DLP (mGy-cm): 1118.98 FINDINGS: Brain: Subcortical and periventricular white matter changes consistent with small-vessel ischemic disease in the appropriate clinical setting. Small-vessel ischemic disease. No acute intracranial abnormality. Cerebral ventricles: No ventriculomegaly. Paranasal sinuses: Visualized sinuses are unremarkable. No fluid levels. Mastoid air cells: Visualized mastoid air cells are well aerated. Bones: Unremarkable. No acute fracture. Soft tissues: Unremarkable. CT/CT head wo con* [id number] IMPRESSION: 1. No acute intracranial abnormality. 2. Small-vessel ischemic disease.
--- NOTE | 2024-06-08 20:39 | ED_ITS ---
Documented by User: Stephan Hanley MD 06/09/24 11:17 HPI - Male Genitourinary 2 General: Chief complaint: Psychiatric Symptoms Stated complaint: hallucination, possiable uti Time Seen by Provider: 06/08/24 20:16 Source: patient Mode of arrival: ambulatory Limitations: no limitations History of Present Illness: 84-year-old male that is here as he has been having extreme paranoia is not hallucinations he states that he thinks people are out to kill him he has told his girlfriend that there has been bomb squad's called to his house he has had an infection in the past a UTI as cause symptoms like this but states he has had no dysuria he is ANO x 4 answer my question appropriately denies SI HI but is extremely paranoid Associated symptoms: Deny dysuria, nausea or vomiting Related Data Home Medications Medication Instructions Recorded Confirmed acetaminophen 500 mg tablet 500 - 1,000 mg PO Q6H PRN Pain 09/28/19 06/09/24 (Tylenol Extra Strength) Previous Rx's Medication Instructions Recorded lisinopril 20 mg tablet 40 mg (2 x 20 mg) PO DAILY 30 days 08/16/23 #30 tabs Allergies Allergy/AdvReac Type Severity Reaction Status Date / Time procaine [From Novocain] Allergy Unconscious Verified 06/08/24 17:23 Review of Systems 2 Const: Denies: fever(s), chills, body aches or change in appetite ENMT: Denies: throat pain or dental pain Card: Denies: chest pain Resp: Denies: dyspnea GI: Denies: abdominal pain, nausea, vomiting or diarrhea : Denies: dysuria Musc: Denies: neck pain or back pain Skin/Breast: Denies: rash Neuro: Denies: headache(s) Psych: Reports: paranoia All/Imm: Denies: urticaria PFSH ED 2 PFSH: Medical History (Updated 06/08/24 @ 20:57 by Stephan Hanley MD) Wernickes encephalopathy Left femoral shaft fracture Arm fracture, left Surgical History History of open reduction and internal fixation (ORIF) procedure Family History Other Healthy adult Social History Smoking and tobacco/nicotine status: current every day tobacco/nicotine user cigarettes Packs smoked per day: 1 Alcohol intake: former Former alcohol use details: quit in September 2019 - pk daily Substance/Drug Use: never Physical Exam 2 Const: COMMON NORMALS: no acute distress, patient oriented x3 and healthy appearing HENMT: COMMON NORMALS: normocephalic and atraumatic HEAD & SCALP: n ormocephalic and atraumatic Neck/C-Spine: COMMON NORMALS: full ROM and supple Chest: COMMONS NORMALS: normal inspection of the chest Resp: COMMON NORMALS: normal respiratory effort, No retractions, No use of accessory muscles and clear to auscultation bilaterally AUSCULTATION: clear to auscultation bilaterally Cardio: COMMON NORMALS: regular rate, regular rhythm and No murmurs present (Cardio) RATE: regular rate RHYTHM: regular rhythm GI: COMMON NORMALS: Normal to inspection, nondistended, normoactive bowel sounds present, Soft to palpation, non-tender and no masses PALPATION: Yes Soft to palpation Extremity: COMMON NORMALS: normal to inspection and full ROM Neuro: COMMON NORMALS: patient oriented x3, moves all extremities and no focal motor deficits Psych: COMMON NORMALS: cooperative THOUGHT CONTENT: Yes delusions, Yes Hallucination(s) present and Yes Derealization present Skin: COMMON NORMALS: no rashes or lesions noted and no wounds GENERAL SKIN EXAM: no rashes or lesions noted Course 2 Vital Signs: Vital signs: Vital Signs Temperature 97.7 F 06/08/24 17:17 Pulse Rate 98 06/09/24 09:45 Respiratory Rate 18 06/09/24 04:00 Blood Pressure 110/55 06/09/24 09:45 Pulse Oximetry 93 06/09/24 09:45 Oxygen Delivery Me thod Room Air 06/09/24 00:00 MDM - Male Medical Records I reviewed the patient's medical records. Lab Data I reviewed the patient's lab results. 06/08/24 19:06 06/08/24 19:[address] 06/08/24 20:37 IMPRESSION: 1. No acute intracranial abnormality. 2. Small-vessel ischemic disease. Laboratory Results WBC 8.27 10^3/uL (3.29-11.43) 06/08/24 19:06 RBC 4.68 10^6/uL (3.85-5.65) 06/08/24 19:06 Hgb 14.90 g/dL (11.27-16.99) 06/08/24 19:06 Hct 43.8 % (37-53) 06/08/24 19:06 MCV 93.6 fl (82-101) 06/08/24 19:06 MCH 31.8 pg (27-33) 06/08/24 19:06 MCHC 34.0 g/dL (30-55) 06/08/24 19:06 RDW 12.9 % (12.1-15.1) 06/08/24 19:06 Plt Count 256 10^3/cmm (157-399) 06/08/24 19:06 MPV 9.4 fL (7.4-10.4) 06/08/24 19:06 Neut % (Auto) 68.2 % 06/08/24 19:06 Lymph % (Auto) 20.0 % 06/08/24 19:06 Day % (Auto) 9.1 % 06/08/24 19:06 Eos % (Auto) 1.8 % 06/08/24 19:06 Baso % (Auto) 0.7 % 06/08/24 19:06 Neut # (Auto) 5.64 10^3/uL (1.8-7.7) 06/08/24 19:06 Lymph # (Auto) 1.7 10^3/uL (0.8-4.8) 06/08/24 19:06 Day # (Auto) 0.8 10^3/uL (0.2-0.9) 06/08/24 19:06 Eos # (Auto) 0.2 10^3/uL (0.0-0.8) 06/08/24 19:06 Baso # (Auto) 0.1 10^3/uL (0.0-0.1) 06/08/24 19:06 Nucleated RBC % (auto) 0 % 06/08/24 19:06 Nucleated RBCs # 0.0 /100WBC 06/08/24 19:06 Sodium 132 mmol/L (136-145) L 06/08/24 19:06 Potassium 4.7 mmol/L (3.5-5.1) 06/08/24 19:06 Chloride 96 mmol/L (98-107) L 06/08/24 19:06 Carbon Dioxide 28 mmol/L (22-29) 06/08/24 19:06 Anion Gap 12.7 (5-19) 06/08/24 19:06 BUN 26 mg/dL (8-23) H 06/08/24 19:06 Creatinine 1.1 mg/dL (0.7-1.2) 06/08/24 19:06 GFR Calculation Not Reportable 06/08/24 19: Glucose 105 mg/dL (65-115) 06/08/24 19: Calculated Osmolality 279 mOsm/kg (285-295) L 06/08/24 19:06 Calcium 9.5 mg/dL (8.5-10.5) 06/08/24 19:06 Total Bilirubin 0.7 mg/dL (0.15-1.2) 06/08/24 19:06 AST 21 U/L (0-40) 06/08/24 19:06 ALT 14 U/L (0-41) 06/08/24 19:06 Alkaline Phosphatase 78 U/L (40-130) 06/08/24 19:06 Total Protein 6.7 g/dL (6.6-8.7) 06/08/24 19: Albumin 4.4 g/dL (3.5-5.2) 06/08/24 19:06 Globulin 2.3 g/dL (1.3-4.6) 06/08/24 19: Lipase 37 U/L (13-60) 06/08/24 19:06 Urine Color Yellow (Yellow) 06/08/24 19:00 Urine Appearance Clear (CLEAR) 06/08/24 19:00 Urine pH 6.5 (5-7) 06/08/24 19: Ur Specific [place] 1.022 (1.005-1.030) 06/08/24 19: Urine Protein Trace (Negative) A 06/08/24 19:00 Urine Glucose (UA) Negative (Normal) 06/08/24 19:00 Urine Ketones Trace (Negative) 06/08/24 19: Urine Blood Negative (Negative) 06/08/24 19: Urine Nitrate Negative (Negative) 06/08/24 19:00 Urine Bilirubin Negative (Negative) 06/08/24 19:00 Urine Urobilinogen 1.0 mg/dL (Negative) 06/08/24 19:00 Ur Leukocyte Esterase 1+ (Negative) A 06/08/24 19:00 Urine RBC 0-2 /hpf (0-2) 06/08/24 19:00 Urine WBC 0-5 /hpf (0-5) 06/08/24 19:00 Ur Squamous Epith Cells 0-5 /hpf (0-5) 06/08/24 19:00 Amorphous Sediment Not Reportable 06/08/24 19:00 Urine Bacteria None seen /hpf (NONE) 06/08/24 19:00 Hyaline Casts 1.21 /lpf 06/08/24 19:00 Urine Opiates Screen Negative ng/mL (Negative) 06/08/24 19:00 Ur Barbiturates Screen Negative ng/mL (Negative) 06/08/24 19:00 Ur Phencyclidine Scrn Negative ng/mL (Negative) 06/08/24 19:00 Ur Amphetamines Screen Negative ng/mL (Negative) 06/08/24 19:00 U Benzodiazepines Scrn Negative ng/mL (Negative) 06/08/24 19:00 Urine Cocaine Screen Negative ng/mL (Negative) 06/08/24 19:00 U Marijuana (THC) Screen Negative ng/mL (Negative) 06/08/24 19:00 Ethyl Alcohol < 10 mg/dL (0-10) 06/08/24 19:06 Adenovirus (PCR) Not detected (NOT DETECT) 06/08/24 21:05 C. pneumoniae DNA (PCR) Not detected (NOT DETECT) 06/08/24 21:05 Coronavirus 229E (PCR) Not detected (NOT DETECT) 06/08/24 21:05 Human Metapneumovir PCR Not detected (NOT DETECT) 06/08/24 21:05 Influenza A (H1) PCR Not detected (NOT DETECT) 06/08/24 21:05 Influ A (H1/09) PCR Not detected (NOT DETECT) 06/08/24 21:05 Influenza A (H3) PCR Not detected (NOT DETECT) 06/08/24 21:05 Influenza Type A (PCR) Not detected (NOT DETECT) 06/08/24 21:05 Influenza Type B (PCR) Not detected (NOT DETECT) 06/08/24 21:05 M. pneumoniae (PCR) Not detected (NOT DETECT) 06/08/24 21:05 Parainfluenza 1 (PCR) Not detected (NOT DETECT) 06/08/24 21:05 Parainfluenza 2 (PCR) Not detected (NOT DETECT) 06/08/24 21:05 Parainfluenza 3 (PCR) Not detected (NOT DETECT) 06/08/24 21:05 Parainfluenza 4 (PCR) Not detected (NOT DETECT) 06/08/24 21:05 RSV Type A (PCR) Not detected (NOT DETECT) 06/08/24 21:05 RSV Type B (PCR) Not detected (NOT DETECT) 06/08/24 21:05 Entero/Rhino (PCR) Not detected (NOT DETECT) 06/08/24 21:05 SARS-CoV-2 (PCR) Not detected (NOT DETECT) 06/08/24 21:05 No radiology studies performed this visit EKG Data EKG 1: I personally reviewed and interpreted this EKG as follows: EKG Data: 06/08/24 EKG interpretation time: 21:31 Interpretation: nsr hr [address] elevation qrs 135 qtc 420 Discharge Plan Discharge Patient Disposition: Xfer Short-Term Hosp Clinical Impression: Hallucination, Acute psychosis Condition: Stable Coding Level of Care Code ED Performance Improvement Coordinator for Chg Fwd Documented by User: Dejan Shetty DO 06/08/24 23:49 HPI - Male Genitourinary 2 General: Chief complaint: Psychiatric Symptoms Stated complaint: hallucination, possiable uti Time Seen by Provider: 06/08/24 20:16 Related Data Home Medications Medication Instructions Recorded Confirmed acetaminophen 500 mg tablet 500 - 1,000 mg PO Q6H PRN Pain 09/28/19 06/09/24 (Tylenol Extra Strength) Previous Rx's Medication Instructions Recorded lisinopril 20 mg tablet 40 mg (2 x 20 mg) PO DAILY 30 days 08/16/23 #30 tabs Allergies Allergy/AdvReac Type Severity Reaction Status Date / Time procaine [From Novocain] Allergy Unconscious Verified 06/08/24 17:23 PFSH ED 2 PFS: Medical History (Updated 06/08/24 @ 20:57 by Stephan Hanley MD) Wernickes encephalopathy Left femoral shaft fracture Arm fracture, left Surgical History History of open reduction and internal fixation (ORIF) procedure Family History Other Healthy adult Social History Smoking and tobacco/nicotine status: current every day tobacco/nicotine user cigarettes Packs smoked per day: 1 Alcohol intake: former Former alcohol use details: quit in September 2019 - 6pk daily Substance/Drug Use: never Course 2 Vital Signs: Vital signs: Vital Signs Temperature 97.7 F 06/08/24 17:17 Pulse Rate 98 06/09/24 09:45 Respiratory Rate 18 06/09/24 04:00 Blood Pressure 110/55 06/09/24 09:45 Pulse Oximetry 93 06/09/24 09:45 Oxygen Delivery Me thod Room Air 06/09/24 00:00 MDM - Male Medical Decision Making Care transferred over to myself at shift change, patient was accepted at [facility] by Dr. Santamaria Lab Data 06/08/24 19:06 06/08/24 19:[address] 06/08/24 20:37 IMPRESSION: 1. No acute intracranial abnormality. 2. Small-vessel ischemic disease. Laboratory Results WBC 8.27 10^3/uL (3.29-11.43) 06/08/24 19:06 RBC 4.68 10^6/uL (3.85-5.65) 06/08/24 19:06 Hgb 14.90 g/dL (11.27-16.99) 06/08/24 19:06 Hct 43.8 % (37-53) 06/08/24 19:06 MCV 93.6 fl (82-101) 06/08/24 19:06 MCH 31.8 pg (27-33) 06/08/24 19:06 MCHC 34.0 g/dL (30-55) 06/08/24 19:06 RDW 12.9 % (12.1-15.1) 06/08/24 19:06 Plt Count 256 10^3/cmm (157-399) 06/08/24 19:06 MPV 9.4 fL (7.4-10.4) 06/08/24 19:06 Neut % (Auto) 68.2 % 06/08/24 19:06 Lymph % (Auto) 20.0 % 06/08/24 19:06 Day % (Auto) 9.1 % 06/08/24 19:06 Eos % (Auto) 1.8 % 06/08/24 19:06 Baso % (Auto) 0.7 % 06/08/24 19:06 Neut # (Auto) 5.64 10^3/uL (1.8-7.7) 06/08/24 19:06 Lymph # (Auto) 1.7 10^3/uL (0.8-4.8) 06/08/24 19:06 Day # (Auto) 0.8 10^3/uL (0.2-0.9) 06/08/24 19:06 Eos # (Auto) 0.2 10^3/uL (0.0-0.8) 06/08/24 19:06 Baso # (Auto) 0.1 10^3/uL (0.0-0.1) 06/08/24 19:06 Nucleated RBC % (auto) 0 % 06/08/24 19:06 Nucleated RBCs # 0.0 /100WBC 06/08/24 19:06 Sodium 132 mmol/L (136-145) L 06/08/24 19:06 Potassium 4.7 mmol/L (3.5-5.1) 06/08/24 19:06 Chloride 96 mmol/L (98-107) L 06/08/24 19:06 Carbon Dioxide 28 mmol/L (22-29) 06/08/24 19:06 Anion Gap 12.7 (5-19) 06/08/24 19:06 BUN 26 mg/dL (8-23) H 06/08/24 19:06 Creatinine 1.1 mg/dL (0.7-1.2) 06/08/24 19:06 GFR Calculation Not Reportable 06/08/24 19:06 Glucose 105 mg/dL (65-115) 06/08/24 19:06 Calculated Osmolality 279 mOsm/kg (285-295) L 06/08/24 19:06 Calcium 9.5 mg/dL (8.5-10.5) 06/08/24 19:06 Total Bilirubin 0.7 mg/dL (0.15-1.2) 06/08/24 19:06 AST 21 U/L (0-40) 06/08/24 19: ALT 14 U/L (0-41) 06/08/24 19:06 Alkaline Phosphatase 78 U/L (40-130) 06/08/24 19:06 Total Protein 6.7 g/dL (6.6-8.7) 06/08/24 19: Albumin 4.4 g/dL (3.5-5.2) 06/08/24 19: Globulin 2.3 g/dL (1.3-4.6) 06/08/24 19: Lipase 37 U/L (13-60) 06/08/24 19:06 Urine Color Yellow (Yellow) 06/08/24 19:00 Urine Appearance Clear (CLEAR) 06/08/24 19: Urine pH 6.5 (5-7) 06/08/24 19:00 Ur Specific [place] 1.022 (1.005-1.030) 06/08/24 19:00 Urine Protein Trace (Negative) A 06/08/24 19:00 Urine Glucose (UA) Negative (Normal) 06/08/24 19: Urine Ketones Trace (Negative) 06/08/24 19: Urine Blood Negative (Negative) 06/08/24 19:00 Urine Nitrate Negative (Negative) 06/08/24 19: Urine Bilirubin Negative (Negative) 06/08/24 19: Urine Urobilinogen 1.0 mg/dL (Negative) 06/08/24 19:00 Ur Leukocyte Esterase 1+ (Negative) A 06/08/24 19:00 Urine RBC 0-2 /hpf (0-2) 06/08/24 19:00 Urine WBC 0-5 /hpf (0-5) 06/08/24 19:00 Ur Squamous Epith Cells 0-5 /hpf (0-5) 06/08/24 19:00 Amorphous Sediment Not Reportable 06/08/24 19:00 Urine Bacteria None seen /hpf (NONE) 06/08/24 19:00 Hyaline Casts 1.21 /lpf 06/08/24 19:00 Urine Opiates Screen Negative ng/mL (Negative) 06/08/24 19:00 Ur Barbiturates Screen Negative ng/mL (Negative) 06/08/24 19:00 Ur Phencyclidine Scrn Negative ng/mL (Negative) 06/08/24 19:00 Ur Amphetamines Screen Negative ng/mL (Negative) 06/08/24 19:00 U Benzodiazepines Scrn Negative ng/mL (Negative) 06/08/24 19:00 Urine Cocaine Screen Negative ng/mL (Negative) 06/08/24 19:00 U Marijuana (THC) Screen Negative ng/mL (Negative) 06/08/24 19:00 Ethyl Alcohol < 10 mg/dL (0-10) 06/08/24 19:06 Adenovirus (PCR) Not detected (NOT DETECT) 06/08/24 21:05 C. pneumoniae DNA (PCR) Not detected (NOT DETECT) 06/08/24 21:05 Coronavirus 229E (PCR) Not detected (NOT DETECT) 06/08/24 21:05 Human Metapneumovir PCR Not detected (NOT DETECT) 06/08/24 21:05 Influenza A (H1) PCR Not detected (NOT DETECT) 06/08/24 21:05 Influ A (H1/09) PCR Not detected (NOT DETECT) 06/08/24 21:05 Influenza A (H3) PCR Not detected (NOT DETECT) 06/08/24 21:05 Influenza Type A (PCR) Not detected (NOT DETECT) 06/08/24 21:05 Influenza Type B (PCR) Not detected (NOT DETECT) 06/08/24 21:05 M. pneumoniae (PCR) Not detected (NOT DETECT) 06/08/24 21:05 Parainfluenza 1 (PCR) Not detected (NOT DETECT) 06/08/24 21:05 Parainfluenza 2 (PCR) Not detected (NOT DETECT) 06/08/24 21:05 Parainfluenza 3 (PCR) Not detected (NOT DETECT) 06/08/24 21:05 Parainfluenza 4 (PCR) Not detected (NOT DETECT) 06/08/24 21:05 RSV Type A (PCR) Not detected (NOT DETECT) 06/08/24 21:05 RSV Type B (PCR) Not detected (NOT DETECT) 06/08/24 21:05 Entero/Rhino (PCR) Not detected (NOT DETECT) 06/08/24 21:05 SARS-CoV-2 (PCR) Not detected (NOT DETECT) 06/08/24 21:05 Discharge Plan Discharge Patient Disposition: Xfer Short-Term Hosp Clinical Impression: Hallucination, Acute psychosis Condition: Stable Coding Level of Care Code ED Performance Improvement Coordinator for Brendon Jon
[2024-06-08 20:58] LABS: Alcohol Level < 10 mg/dL (0-10)
[2024-06-08 21:13] LABS: Amphetamines Screen Urine Negative (Negative); Barbiturates Screen Urine Negative (Negative); Benzodiazepines Screen Urine Negative (Negative); Cocaine Screen Urine Negative (Negative); Opiate Screen Urine Negative (Negative); PCP Screen Urine Negative (Negative); THC Screen Urine Negative (Negative)
[2024-06-08] MEDS: LORazepam 1 mg Tablet PO (22:12)
[2024-06-08 22:52] VITALS: BP 118/61; PULSE 61; O2SAT 94
[2024-06-08 22:54] LABS: Adenovirus Not Detected (NOT DETECT); Chlamydia Pneumoniae Not Detected (NOT DETECT); Coronavirus 229E,HKU1,NL63,OC4 Not Detected (NOT DETECT); Human Metapneumovirus Not Detected (NOT DETECT); Human Rhinovirus/Enterovirus Not Detected (NOT DETECT); Influenza A Not Detected (NOT DETECT); Influenza A H1 Not Detected (NOT DETECT); Influenza A H1-2009 Not Detected (NOT DETECT); Influenza A H3 Not Detected (NOT DETECT); Influenza B Not Detected (NOT DETECT); Mycoplasma Pneumoniae Not Detected (NOT DETECT); Parainfluenza Virus Type 1 Not Detected (NOT DETECT); Parainfluenza Virus Type 2 Not Detected (NOT DETECT); Parainfluenza Virus Type 3 Not Detected (NOT DETECT); Parainfluenza Virus Type 4 Not Detected (NOT DETECT); Respiratory Syncytial Virus A Not Detected (NOT DETECT); Respiratory Syncytial Virus B Not Detected (NOT DETECT); SARS-COV-2 Not Detected (NOT DETECT)
--- NOTE | 2024-06-08 23:25 | PC.NURSE ---
[facility] Pt served with copy of [facility] by this RN and security. Pt sleepy and not asking questions at this time. Copy of right paperwork left at bedside.
[2024-06-09] VITALS: BP 108/65; PULSE 59; RESP 18; O2SAT 93
[2024-06-09 04:00] VITALS: BP 146/66; PULSE 56; RESP 18; O2SAT 90
--- NOTE | 2024-06-09 08:05 | PC.PHAR ---
Pt unable to verify any current medications. Tylenol was already on his med list and Lisinopril 20mg daily was sent over 05/05/24 90ds-Erict states he never picked it up.
[2024-06-09 09:39] VITALS: BP 110/55; PULSE 98; O2SAT 93
[2024-06-09 09:45] VITALS: BP 110/55; PULSE 98; O2SAT 93
== END 2024-06-09 09:50 | disposition short-term general hospital (02) ==
PROVIDERS: Emergency Provider Emergency Medicine
DX: F23 Brief psychotic disorder (principal); F17.210 Nicotine dependence, cigarettes, uncomplicated; Z11.52 Encounter for screening for COVID-19
CPT/HCPCS: 36415; 70450; 80053; 80306; 80307; 81001; 83690; 85025; 87486; 87581; 87633; 93005; 99285

== ENCOUNTER 2024-12-11 10:02 | Outpatient (CLI) | payer MEDICARE, SELFPAY ==
--- NOTE | 2024-12-11 10:00 | PETR_ITS ---
PROCEDURE INFORMATION: Exam: PET/CT Skull Base to Mid-thigh Exam date and time: 12/11/2024 10:52 AM Age: 84 years old Clinical indication: Condition or disease; Condition/disease: Lung mass LABS AND CLINICAL REPORTS: Glucose: 121 mg/dl Treatment strategy for malignancy (PET staging): Initial Staging (PI) TECHNIQUE: Imaging protocol: Following at least four-hour fasting and following the injection of radiopharmaceutical, low dose CT images were obtained. Then, PET images were obtained. Attenuation corrected images were constructed using the CT scan. Fused images of PET and CT were reviewed. The standardized uptake values (SUV) reported below are maximum values within a region of interest, expressed in gm/ml. Exam includes orbital meatal line to mid-thigh. SUV normalization method: BodyWeight Radiopharmaceutical: 11.15 mCi F-18 FDG (Fluorodeoxyglucose), IV. Time of imaging post radiopharmaceutical administration: 47 minutes Injection site: LAC COMPARISON: CT chest abd pel wo/w con 12/10/2019 4:45 PM FINDINGS: Brain: Visualized brain has normal physiologic uptake. Pharynx: No abnormal uptake. Larynx: No abnormal uptake. Lungs, pleura and trachea: Significant interval growth and interval cavitation of an FDG avid thick-walled cavitary spiculated nodule in the anterior right upper lobe, maximum SUV 7.1. The lesion now measures 2.3 x 2.5 cm, previously 0.8 x 0.9 cm in 2020. There is also a new 1.1 x 0.9 cm FDG avid nodule in the medial right middle lobe, maximum SUV 7.9 (series 202, image 88), suspicious for a metastatic nodule. There is endobronchial increased FDG uptake connecting the 2 lesions (see for example series 202, images 81-87). Heart: Normal physiologic uptake. Mediastinal space: No abnormal uptake. Liver: No abnormal uptake. Gallbladder and biliary ducts: No abnormal uptake. Pancreas: No abnormal uptake. Spleen: No abnormal uptake. Adrenal glands: No abnormal uptake. Kidneys and ureters: Normal physiologic uptake. Stomach and bowel: No abnormal uptake. Vasculature: No abnormal uptake. Lymph nodes: No abnormal uptake. No lymphadenopathy in the head, neck, chest, abdomen, pelvis, and extremities. Skeleton: No abnormal uptake in the visualized axial and appendicular skeleton. Pelvic screws and hardware in place. Chronic left inferior pubic ramus fracture. Soft tissues: No abnormal uptake in the visualized head, neck, chest, abdomen, pelvis, and extremities. Non FDG avid 2.9 cm left upper back/lower neck subepidermal inclusion cyst. METRICS: Mediastinal blood pool: Mean SUV of 1.6 Liver uptake: Mean SUV of 1.9 PET/PET skull to thigh INIT [id number] IMPRESSION: 1. 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 2. Additional new 1.1 cm FDG avid nodule in the right middle lobe, suspicious for a metastatic nodule. There is endobronchial increased FDG uptake connecting the 2 lesions suspicious for tumoral infiltration. 3. No FDG avid lymphadenopathy. 4. No evidence of metastatic disease within the head/neck, abdomen or pelvis or osseous structures.
== END 2024-12-11 10:03 | disposition home or self-care (01) ==
LOC: RAD 10:02
PROVIDERS: Visit Provider Nurse Practitioner Family
DX: R91.8 Other nonspecific abnormal finding of lung field (principal)
CPT/HCPCS: 78815; A9552